=== PATIENT | female | born 1970 | race Caucasian/White ===

== ENCOUNTER 2017-06-12 09:08 | Day surgery (SDC) | payer SELFPAY ==
[2017-06-12] MEDS ORDERED: DIPH/PERTUSS(ACELL)/TETANUS VAC/PF 0.5 ML SYR (>=10YO) IM ONE (09:51)
[2017-06-12] MEDS ORDERED: CEFAZOLIN 2 GM/D5W RTU 2 GM/50 ML RTUPB IV ONE (09:51)
[2017-06-12] MEDS ORDERED: NORMAL SALINE 1000 ML 1,000 ML IV ONE (09:56)
--- NOTE | 2017-06-12 09:56 | ER Document Report ---
ED General - General Chief Complaint: Laceration Stated Complaint: WRIST LACERATION Time Seen by Provider: 06/12/17 09:50 Mode of Arrival: Ambulatory Information source: Patient Notes: 47-year-old female history of hypertension presents with complaints of laceration of the wrist. Patient notes that she was in a dumpster retrieving a screwdriver. Patient notes she cut her wrist on a fish aquarium Patient went to urgent care and was sent immediately here tetanus is not up-to- date TRAVEL OUTSIDE OF THE [place] IN LAST 30 DAYS: No - HPI Onset: Just prior to arrival Onset/Duration: Sudden Quality of pain: Sharp Severity: Moderate Pain Level: 2 Associated symptoms: Other Exacerbated by: Denies Relieved by: Denies Similar symptoms previously: No Recently seen / treated by doctor: Yes - Related Data Allergies/Adverse Reactions: No Known Allergies Allergy (Verified 06/12/17 09:09) Past Medical History - Social History Smoking Status: Never Smoker Cigarette use (# per day): No Chew tobacco use (# tins/day): No Smoking Education Provided: No Family History: Reviewed & Not Pertinent - Past Medical History Cardiac Medical History: Reports: Hx Hypertension - Immunizations Hx Diphtheria, Pertussis, Tetanus Vaccination: No Review of Systems - Review of Systems Notes: REVIEW OF SYSTEMS: CONSTITUTIONAL : Denies fever, chills, or sweats. Denies recent illness. EENT: Denies eye, ear, throat, or mouth pain or symptoms. Denies nasal or sinus congestion or discharge. Denies throat, tongue, or mouth swelling or difficulty swallowing. CARDIOVASCULAR: Denies chest pain. Denies palpitations or racing or irregular heart beat. Denies ankle edema. RESPIRATORY: Denies cough, cold, or chest congestion. Denies shortness of breath, difficulty breathing, or wheezing. GASTROINTESTINAL: Denies abdominal pain or distention. Denies nausea, vomiting , or diarrhea. Denies blood in vomitus, stools, or per rectum. Denies black, tarry stools. Denies constipation. GENITOURINARY: Denies difficulty urinating, painful urination, burning, frequency, blood in urine, or discharge. FEMALE GENITOURINARY: Denies vaginal bleeding, heavy or abnormal periods, irregular periods. Denies vaginal discharge or odor. MUSCULOSKELETAL: Denies back or neck pain or stiffness. Denies joint pain or swelling. SKIN: Right wrist laceration HEMATOLOGIC : Denies easy bruising or bleeding. LYMPHATIC: Denies swollen, enlarged glands. NEUROLOGICAL: Denies confusion or altered mental status. Denies passing out or loss of consciousness. Denies dizziness or lightheadedness. Denies headache. Denies weakness or paralysis or loss of use of either side. Denies problems with gait or speech. Denies sensory loss, numbness, or tingling. Denies seizures. PSYCHIATRIC: Denies anxiety or stress. Denies depression, suicidal ideation, or homicidal ideation. ALL OTHER SYSTEMS REVIEWED AND NEGATIVE. PHYSICAL EXAMINATION: GENERAL: Well-appearing, well-nourished and in mild acute distress. HEAD: Atraumatic, normocephalic. EYES: Pupils equal round and reactive to light, extraocular movements intact, conjunctiva are normal. ENT: Nares patent, oropharynx clear without exudates. Moist mucous membranes. NECK: Normal range of motion, supple without lymphadenopathy LUNGS: Breath sounds clear to auscultation bilaterally and equal. No wheezes rales or rhonchi. HEART: Regular rate and rhythm without murmurs ABDOMEN: Soft, nontender, nondistended abdomen. No guarding, no rebound. No masses appreciated. Female : deferred Musculoskeletal: Normal range of motion, no pitting or edema. No cyanosis. NEUROLOGICAL: Cranial nerves grossly intact. Normal speech, normal gait. Normal sensory, motor exams PSYCH: Normal mood, normal affect. SKIN: Laceration of the wrist right palmar aspect with obvious radial arterial injury pulsating blood noted, there is no involvement of tendons or nerves, patient has full range of motion of her hand good sensation patient still has good cap refill in her digits Dictation was performed using [employer] voice recognition software Physical Exam - Vital signs Vitals: Temp Pulse Resp BP Pulse Ox 97.9 F 97 16 175/122 H 98 06/12/17 09:33 06/12/17 09:33 06/12/17 09:33 06/12/17 09:33 06/12/17 09:33 Course - Re-evaluation Re-evalutation: 06/12/17 10:06 There is an obvious laceration of radial artery, Dr. Ireland was immediately consulted who immediately arrived to the ED, prior to even getting lab work or IV access he evaluated the injury noted that it is arterial in nature and will take to the operating room for repair - Vital Signs Vital signs: Temp Pulse Resp BP Pulse Ox 97.9 F 97 16 175/122 H 98 06/12/17 09:33 06/12/17 09:33 06/12/17 09:33 06/12/17 09:33 06/12/17 09:33 Critical Care Note - Critical Care Note Total time excluding time spent on procedures (mins): 15 Comments: 15 minutes of critical care time spent in direct contact evaluating and reevaluating the patient, treating symptoms, reviewing labs and studies and speaking with family and consultants excluding any procedures Discharge - Discharge Clinical Impression: Radial artery injury Qualifiers: Encounter type: initial encounter Laterality: right Qualified Code(s): S55.101A - Unspecified injury of radial artery at forearm level, right arm, initial encounter Condition: Fair Disposition: SAME DAY SURGERY Admitting Provider: Surgicalist
[2017-06-12] MEDS ORDERED: LIDOCAINE 1%/EPINEPHRINE INJ 20 ML VIAL ONE (10:04)
[2017-06-12] MEDS ORDERED: FENTANYL CITRATE INJ/PF 100 MCG/2 ML AMPUL ONE ×3 (10:11→11:56)
[2017-06-12] MEDS ORDERED: MIDAZOLAM 2 MG/2 ML INJ ONE ×2 (10:12→11:56)
[2017-06-12] MEDS ORDERED: PROPOFOL INJ 200 MG/20 ML VIAL IV ONE ×2 (10:12→11:56)
[2017-06-12 10:30] LABS: ABSOLUTE EOSINOPHILS # (AUTO) 0.1 10^3/uL (0.0-0.6); ABSOLUTE LYMPHOCYTES (AUTO) 1.1 10^3/uL (0.5-4.7); ABSOLUTE MONOCYTES (AUTO) 0.6 10^3/uL (0.1-1.4); ABSOLUTE NEUT (AUTO) 6.5 10^3/uL (1.7-8.2); BASOPHILS % (AUTO) 0.5 % (0-2); EOSINOPHILS % (AUTO) 0.7 % (0-6); HEMATOCRIT 41.8 % (36.0-47.0); HEMOGLOBIN 14.2 g/dL (12.0-15.5); LYMPHOCYTES % (AUTO) 13.2 % (13-45); MEAN CORPUSCULAR HEMOGLOBIN 29.6 pg (27.0-33.4); MEAN CORPUSCULAR HGB CONC 34.1 g/dL (32.0-36.0); MEAN CORPUSCULAR VOLUME 87 fl (80-97); MONOCYTES % (AUTO) 7.2 % (3-13); PLATELET COUNT 274 10^3/uL (150-450); RED BLOOD COUNT 4.81 10^6/uL (3.72-5.28); RED CELL DISTRIBUTION WIDTH 13.3 % (11.5-14.0); SEGMENTED NEUTROPHILS % (AUTO) 78.4 % (42-78); TOTAL CELLS COUNTED % (AUTO) 100 %; WHITE BLOOD COUNT 8.3 10^3/uL (4.0-10.5)
[2017-06-12] MEDS ORDERED: KETOROLAC TROMETHAMINE 10 MG TABLET PO PRN (11:47)
[2017-06-12] MEDS ORDERED: ONDANSETRON HCL INJ/PF 4 MG/2 ML SDV IV PRN ×2 (11:47→11:59)
[2017-06-12] MEDS ORDERED: ACETAMINOPHEN 100 ML IV ONE (11:56)
--- NOTE | 2017-06-12 11:56 | Operative Report ---
Operative Report DATE OF SURGERY: 06/12/17 PREOPERATIVE DIAGNOSIS: Laceration right wrist with arterial bleeding POSTOPERATIVE DIAGNOSIS: As above with partial laceration to right radial artery OPERATION: 1. Exploration of right wrist wound. 2. Repair of right radial artery, likely branch thereof SURGEON: BORIS JOYNER ANESTHESIA: GA TISSUE REMOVED OR ALTERED: Nonviable skin COMPLICATIONS: None ESTIMATED BLOOD LOSS: 5 cc in OR INTRAOPERATIVE FINDINGS: See below PROCEDURE: The patient was seen in the emergency department where it was determined that the patient needed to be taken from the emergency department to the operating room control of right radial artery injury. The patient was taken directly to room for after operating room staff and anesthesia were mobilized. Patient anesthetized with general anesthesia. Right arm was abducted, prepped and draped in sterile fashion while holding pressure on the right radial artery. Instrumentation was set up vascular surgery. The right wrist was exposed after timeout conducted The findings are significant for an irregular, longitudinally oriented laceration proximal over and slightly distal to the flexor retinacular crease. The bleeding was coming from a small 2 mm diameter artery running diagonal just under the deep subcutaneous tissue. The laceration did not divide the entire flexor retinaculum; the palmaris longus, and median nerve sheaths were not violated. Therefore this was a very superficial injury. I placed to small bulldog clamps proximally and distally to the small artery. We brought Doppler onto the field and assess the viability of the hand. Strong three-phase signals in the ulnar artery, and the superficial and deep palmar arches. Furthermore there was a strong arterial signal just proximal to the laceration, and the clamped branch vessel. Proceeded to repair the small laceration in the branch of the radial artery which was a partial transverse injury with a single 6-0 interrupted Prolene suture. Clamps were released and flow was restored through this small branch artery as evidenced by the visible pulsations of the vessel. Furthermore we reapplied Doppler and there was strong signal overlying the course of the radial artery at the level of the flexor retinaculum, with persisting, strong signal into the thenar eminence. Summary I believe the artery injury was a branch of the radial artery, not the dominant right nonetheless I felt flow remained wrong to the right hand, and there was no evidence of vascular compromise. Wound was debrided, closed with multiple interrupted 3-0 Vicryl sutures benzoin Steri-Strips Xeroform 4 x 4's and a bulky dressing with a splint leaving the wrist in neutral position. Patient tolerated the procedure well, extubated, taken recovery in stable condition.
[2017-06-12] MEDS ORDERED: MORPHINE SULFATE 10 MG/ML INJ IV PRN (11:59)
[2017-06-12] MEDS ORDERED: FENTANYL CITRATE INJ/PF 100 MCG/2 ML AMPUL IV PRN ×3 (11:59)
[2017-06-12] MEDS ORDERED: PROMETHAZINE HCL INJ 25 MG/1 ML VIAL IV PRN ×2 (11:59)
[2017-06-12] MEDS ORDERED: MEPERIDINE HCL/PF INJ 25 MG/1 ML DISP.SYRIN IV PRN (11:59)
[2017-06-12] MEDS ORDERED: DIPHENHYDRAMINE HCL 50 MG/ML VIAL IV PRN (11:59)
--- NOTE | 2017-06-12 12:08 | HISTORY AND PHYSICAL E ---
History and Physical NAME: BERE ROJAS : 1970 AGE: 47Y ADMITTED: 06/12/2017 ROOM: ED08 REASON FOR HOSPITALIZATION: Laceration right wrist with uncontrolled arterial bleeding. HISTORY OF PRESENTING ILLNESS: The patient is a 47-year-old white female who presents to the emergency department via ground rescue after crawling into a dumpster to retrieve a screwdriver by report. Patient sustained a laceration to the volar aspect of her right wrist with significant arterial bleeding. She was brought to the emergency department with direct pressure applied to the right wrist. The patient was evaluated by Dr. Whitmore who immediately called General Surgery. Patient was evaluated in the emergency department immediately and found to have mechanical bleeding from the right wrist refractory to direct pressure control. We felt that the best course of action would be to take to the patient to the operating room for right wrist exploration and control of bleeding. PAST MEDICAL HISTORY: Hypertension. PAST SURGICAL HISTORY: None. ALLERGIES: None. MEDICATIONS: None. LOCAL MEDICAL DOCTOR: None. FAMILY HISTORY: Noncontributory. REVIEW OF SYSTEMS: As per HPI; no other review of systems performed due to the urgency of the clinical situation. PHYSICAL EXAMINATION: The patient was seen in the emergency department by Dr. Ireland. She was in mild distress. VITAL SIGNS: Temperature 97.9, blood pressure 175/122, heart rate 98, respirations 18. GENERAL: Patient is an anxious white female. She is awake, alert, oriented x4. HEAD: Eyes without icterus. NECK: No adenopathy. LUNGS: Clear to auscultation bilaterally. HEART: Without murmur or gallop. EXTREMITIES: Examined. The right wrist has a laceration longitudinally oriented over the medial aspect of the flexor crease with direct pressure being held to a minimally gaping wound. Upon release of the dressing, there is arterial pulsatile bleeding. NEUROLOGIC: Examination of the right hand and wrist limited, but radial, medial, and ulnar nerve distribution appeared intact. Left upper extremity and lower extremities are grossly unremarkable. There is a palpable radial pulse on the left side and dorsal pedis pulses bilaterally. LABORATORY PROFILE: Hemoglobin of 14.2 IMPRESSION: Traumatic laceration right wrist with arterial bleeding requiring surgical exploration. DISPOSITION: Patient will be taken directly to the operating room for right wrist exploration, control of bleeding. The rationale for this was explained to the patient and her friend. They expressed understanding and agreed to proceed. DICTATING PHYSICIAN: BORIS IRELAND M.D. [id number] PHY#: [id number] ID: [id number] JOB#: [id number] ACCT: [id number] cc:SIRI FRIEDMAN MD, M.D, TIMOTHY M.D. > [facility]
[2017-06-12 13:06] VITALS: BP 146/87
[2017-06-12] MEDS ORDERED: VECURONIUM BROMIDE INJ 10 MG VIAL IV ONE (14:05)
[2017-06-12] MEDS ORDERED: DEXAMETHASONE SOD PHOSPHATE INJ 4 MG/1 ML VIAL ONE (14:05)
[2017-06-12] MEDS ORDERED: SUCCINYLCHOLINE CHLORIDE INJ 200 MG/10 ML VIAL ONE (14:05)
[2017-06-12] MEDS ORDERED: LIDOCAINE 2% INJ-PF (20 MG/ML) 2 ML AMPUL ONE (14:05)
[2017-06-12] MEDS ORDERED: ONDANSETRON HCL INJ/PF 4 MG/2 ML SDV ONE (14:05)
[2017-06-12] MEDS ORDERED: METOCLOPRAMIDE HCL INJ/PF 10 MG/2 ML SDV ONE (14:05)
[2017-06-12] MEDS ORDERED: DOCUSATE SODIUM 100 MG CAPSULE PO SCH (18:00)
--- NOTE | 2017-06-16 07:48 | DISCHARGE SUMMARY E ---
Discharge Summary NAME: BERE ROJAS : 1970 AGE: 47Y ADMITTED: 06/12/2017 DISCHARGED: 06/12/2017 SUMMARY OF HOSPITALIZATION: The patient is a 47-year-old white female who sustained a traumatic laceration to her right radial artery. She was brought in through the emergency department and admitted to the surgicalist service for acute repair. Please see her admission history and physical document. The patient was taken immediately to the operating room by Dr. Ireland where she underwent operative repair of her right radial artery. She tolerated the procedure well. Her postoperative recovery was uneventful. She was started on a diet and had adequate pain control. She was discharged home from the hospital later that day. FINAL DIAGNOSIS: Traumatic laceration, right radial artery status post operative repair by Dr. Ireland. DISPOSITION: The patient will be discharged home in the care of her family. Follow up with Dr. Ireland at [facility] in approximately 1 week; discontinue bulky dressing in 48 hours; she will take Tylenol and Motrin p.r.n. pain. DICTATING PHYSICIAN: BORIS IRELAND M.D. [id number] PHY#: [id number] ID: [id number] JOB#: [id number] ACCT: [id number] cc:Lilian HAND MD, M.D. >
== END 2017-06-12 13:31 | disposition home or self-care (01) ==
LOC: OROUT 09:08 → UNDOADMIN 10:11 → EH 10:11 → 5 12:24 → EH 12:24 → UNDODISIN 13:31 → OROUT 13:31
PROVIDERS: ATTEND Surgery
PROC: 03QB0ZZ Repair Right Radial Artery, Open Approach (ICD-10-PCS; principal; 2017-06-12 10:15)
DX: S65.111A Laceration of radial artery at wrist and hand level of right arm, initial encounter (principal); S51.811A Laceration without foreign body of right forearm, initial encounter; W27.8XXA Contact with other nonpowered hand tool, initial encounter; Z23 Encounter for immunization; I10 Essential (primary) hypertension; Z79.899 Other long term (current) drug therapy
CPT/HCPCS: 99284; 36415; 85025; 90715; 35206; 90471; J2250; J1100; J3010; J3490 ×3; J2765; J0330; J2405; J2704; J1644; J0690; J0131; 1840

== ENCOUNTER 2019-12-26 17:36 | Inpatient (IN) | payer SELFPAY ==
--- NOTE | 2019-12-26 18:11 | ER Document Report ---
ED Medical Screen (RME) - General Chief Complaint: Facial Swelling Stated Complaint: FACIAL SWELLING Time Seen by Provider: 12/26/19 18:03 Mode of Arrival: Ambulatory Information source: Patient Notes: 49-year-old female presents to ED for complaint of neck swelling since last Thursday. She states it was just mildly swollen until yesterday. She states yesterday became much worse. He denies states is not severely painful but it is very tight. She is not able to open her mouth for me to examine her throat. Her neck is rock hard on the right side. I have requested and received a room i mmediately. She does have an elevated pulse elevated temperature and elevated blood pressure. Patient is able to speak with full sentences at this time she states she is not short of breath at this time but my concern is for her airway due to the size of the swelling to her neck. I have greeted and performed a rapid initial assessment of this patient. A comprehensive ED assessment and evaluation of the patient, analysis of test results and completion of medical decision making process will be conducted by an additional ED providers. TRAVEL OUTSIDE OF THE [place] IN LAST 30 DAYS: No - Related Data Allergies/Adverse Reactions: No Known Allergies Allergy (Verified 06/12/17 09:09) Past Medical History - Past Medical History Cardiac Medical History: Reports: Hx Hypertension Renal/ Medical History: Reports: Hx Peritoneal Dialysis - Immunizations Hx Diphtheria, Pertussis, Tetanus Vaccination: No Physical Exam - Vital signs Vitals: Temp Pulse Resp BP Pulse Ox 101.4 F H 122 H 20 163/102 H 98 12/26/19 17:40 12/26/19 17:40 12/26/19 17:40 12/26/19 17:40 12/26/19 17:40 Course - Vital Signs Vital signs: Temp Pulse Resp BP Pulse Ox 101.4 F H 122 H 20 163/102 H 98 12/26/19 17:40 12/26/19 17:40 12/26/19 17:40 12/26/19 17:40 12/26/19 17:40
[2019-12-26] MEDS ORDERED: DILTIAZEM HCL INJ 25 MG/5 ML VIAL IV ONE (18:17)
[2019-12-26] MEDS ORDERED: DIPHENHYDRAMINE HCL 50 MG/ML VIAL IV ONE (18:17)
[2019-12-26] MEDS ORDERED: FAMOTIDINE INJ/PF 20 MG/2 ML SDV IV ONE (18:18)
[2019-12-26] MEDS ORDERED: CEFTRIAXONE INJ 1000 MG VIAL IV ONE (18:18)
[2019-12-26] MEDS ORDERED: LEVOFLOXACIN 750 MG/D5W RTU 750 MG/150 ML RTUPB IV ONE (18:19)
--- NOTE | 2019-12-26 18:25 | ER Document Report ---
ED Medical Screen (RME) - General Chief Complaint: Facial Swelling Stated Complaint: FACIAL SWELLING Time Seen by Provider: 12/26/19 18:03 Mode of Arrival: Ambulatory Information source: Patient Notes: 12/26/19 18:56 - ED Nursing Note by DEBORAH PORTER Num: [id number] : 1970 Patient Age: 49 Pt c/c "My neck has been swollen since Thursday and now I cant open my mouth" Pt reports right lateral and medial neck edema that started Thursday and has progressed into her mandible region. The skin is firm to touch, warm, and erythemic. Pt denies any shortness of breath and has clear lungs to auscultation bibasilar. Pt reports unable to open mouth all the way secondary to swelling. No posterior pharynx edema noted. Pt denies any cracked teeth or dental problems. She denies any familial history of abnormal swelling of the neck or throat. Pt denies any current allergies. Pt denies any recent changes to current home medications. Pt able to speak full sentences. Pt placed on desk monitor with call mortensen within reach. Pt has right 18 G AC IV established on arrival to room. ED Medical Screen (Cesar rae) - General Chief Complaint: Facial Swelling Stated Complaint: FACIAL SWELLING Time Seen by Provider: 12/26/19 18:03 Mode of Arrival: Ambulatory Information source: Patient Notes: 49-year-old female presents to ED for complaint of neck swelling since last Thursday. She states it was just mildly swollen until yesterday. She states yesterday became much worse. He denies states is not severely painful but it is very tight. She is not able to open her mouth for me to examine her throat. Her neck is rock hard on the right side. I have requested and received a room immediately. She does have an elevated pulse elevated temperature and elevated blood pressure. Patient is able to speak with full sentences at this time she states she is not short of breath at this time but my concern is for her airway due to the size of the swelling to her neck. MY NOTES 49-year-old female arrives with chief complaint of swelling to her right facial and right submental and right lateral neck and anterior neck for 6 days; patient reports she has not taken any new medicines. She does take patient denies any trauma or abuse. She denies any dental abscess. Honeybee propolis; it is difficult for her to swallow food. 2 years ago patient saw a jose perdomoan and was placed on thyroid medicine blood pressure medicine and cholesterol medicine but stopped after 2 years because she did not have any physician or resources. Patient reports it started last Thursday as a golf ball area just near the angle of her jaw and neck. Patient describes a lymphoid type area. But it quickly progressed into a hard firm skin area of her neck and face. Patient has been applying cool compresses to the skin area but it progressed to firm red skin regardless. TRAVEL OUTSIDE OF THE [place] IN LAST 30 DAYS: No - HPI Onset: Last week Onset/Duration: Sudden, Persistent, Worse Quality of pain: Achy Severity: Moderate Pain Level: 3 Associated Symptoms: Headache, Sore throat Exacerbated by: Food Relieved by: Denies Similar symptoms previously: No Recently seen / treated by doctor: No - Related Data Smoking: Non-smoker Frequency of alcohol use: None Drug Abuse: None Allergies/Adverse Reactions: No Known Allergies Allergy (Verified 06/12/17 09:09) Past Medical History - General Information source: Patient - Social History Cigarette use (# per day): No Chew tobacco use (# tins/day): No Frequency of alcohol use: None Drug Abuse: None Lives with: Family Family history: Reviewed & Not Pertinent - Past Medical History Cardiac Medical History: Reports: Hx Hypertension Renal/ Medical History: Reports: Hx Peritoneal Dialysis - Immunizations Hx Diphtheria, Pertussis, Tetanus Vaccination: No Review of Systems - Review of Systems Constitutional: See HPI, Fever, Weakness, Recent illness EENT: See HPI Cardiovascular: No symptoms reported Respiratory: No symptoms reported Gastrointestinal: No symptoms reported Genitourinary: No symptoms reported Female Genitourinary: No symptoms reported Musculoskeletal: No symptoms reported Skin: No symptoms reported Hematologic/Lymphatic: No symptoms reported Neurological/Psychological: No symptoms reported Physical Exam - Vital signs Vitals: Temp Pulse Resp BP Pulse Ox 101.4 F H 122 H 20 163/102 H 98 12/26/19 17:40 12/26/19 17:40 12/26/19 17:40 12/26/19 17:40 12/26/19 17:40 Interpretation: Hypertensive, Tachycardic, Febrile - General General appearance: Alert - HEENT Head: Normocephalic, Atraumatic Eyes: Normal Pupils: PERRL Sinus: Normal Nasal: Normal Mouth/Lips: Angioedema, Other - Able to evaluate posterior pharynx with airway patent. Mucous membranes: Moist Pharynx: Normal Neck: Lymphadenopathy, Neck mass, Other - right lateral parotid edema tender to palp - Respiratory Respiratory status: No respiratory distress, Tachypnea Chest status: Nontender Breath sounds: Normal Chest palpation: Normal - Cardiovascular Rhythm: Tachycardia Heart sounds: Normal auscultation Murmur: No - Abdominal Inspection: Normal Distension: No distension Bowel sounds: Normal Tenderness: Nontender Organomegaly: No organomegaly - Rectal Hemorrhoids: Other - deferred - Genitourinary Bimanuel exam: Other - deferred - Back Back: Normal - Extremities General upper extremity: Normal inspection General lower extremity: Normal inspection - Neurological Neuro grossly intact: Yes Cognition: Normal Orientation: AAOx4 Darin Coma Scale Eye Opening: Spontaneous Darin Coma Scale Verbal: Oriented Darin Coma Scale Motor: Obeys Commands Darin Coma Scale Total: 15 Speech: Normal Motor strength normal: LUE, RUE, LLE, RLE Sensory: Normal - Psychological Associated symptoms: Normal affect - Skin Skin Temperature: Warm Skin Moisture: Dry Skin irregularity: Erythema, other - Cellulitis of right lateral face and neck Course - Vital Signs Vital signs: Temp Pulse Resp BP Pulse Ox 101.1 F H 122 H 34 H 157/93 H 94 12/26/19 21:15 12/26/19 17:40 12/26/19 21:01 12/26/19 21:01 12/26/19 21:01 - Laboratory Result Diagrams: 12/26/19 18:11 12/26/19 18:11 Laboratory results interpreted by me: 12/26/19 12/26/19 12/26/19 18:11 18:11 18:11 WBC 22.7 H Seg Neuts % (Manual) 82 H Lymphocytes % (Manual) 4 L Abs Neuts (Manual) 18.6 H Abs Monocytes (Manual) 2.7 H VBG pH Sodium 133.6 L Chloride 96 L Glucose 131 H Direct Bilirubin 0.5 H ALT 54 H Alkaline Phosphatase 159 H TSH 5.54 H 12/26/19 19:51 WBC Seg Neuts % (Manual) Lymphocytes % (Manual) Abs Neuts (Manual) Abs Monocytes (Manual) VBG pH 7.44 H Sodium Chloride Glucose Direct Bilirubin ALT Alkaline Phosphatase TSH Critical Care Note - Critical Care Note Comments: I discussed this case with Dr. Philip Champagne at 2147 and he advises 1 g of meropenem; I discussed this case with Dr. Geronimo oncologist because of the suspicion for any oral lesion Doctor's Discharge - Discharge Clinical Impression: Cellulitis and abscess of face, Parotitis, acute Fever Qualifiers: Fever type: unspecified Qualified Code(s): R50.9 - Fever, unspecified Condition: Good Disposition: ADMITTED INPATIENT
[2019-12-26 18:39] LABS: HEMATOCRIT 39.1 % (36.0-47.0); HEMOGLOBIN 13.5 g/dL (12.0-15.5); MEAN CORPUSCULAR HEMOGLOBIN 29.5 pg (27.0-33.4); MEAN CORPUSCULAR HGB CONC 34.6 g/dL (32.0-36.0); MEAN CORPUSCULAR VOLUME 85 fl (80-97); RED BLOOD COUNT 4.58 10^6/uL (3.72-5.28); RED CELL DISTRIBUTION WIDTH 13.5 % (11.5-14.0); WHITE BLOOD COUNT 22.7 10^3/uL (4.0-10.5)
[2019-12-26 18:41] LABS: INTERNATIONAL RATION (INR) 1.15; PROTHROMBIN TIME 14.9 SEC (11.4-15.4)
[2019-12-26 18:57] LABS: ABSOLUTE LYMPHOCYTES# (MANUAL) 1.4 10^3/uL (0.5-4.7); ABSOLUTE MONOCYTES # (MANUAL) 2.7 10^3/uL (0.1-1.4); BASOPHILS % (MANUAL) 0 % (0-2); EOSINOPHILS % (MANUAL) 0 % (0-6); LYMPHOCYTES % (MANUAL) 4 % (13-45); MONOCYTES % (MANUAL) 12 % (3-13); RBC MORPHOLOGY COMMENT NORMO-CYTIC/CHROMIC; SEGMENTED NEUTROPHILS % (MAN) 82 % (42-78); TOTAL CELLS COUNTED 100
[2019-12-26 18:58] LABS: PLATELET CLUMPS PRESENT; PLATELET COMMENT ADEQUATE; PLATELET COUNT 333 10^3/uL (150-450)
[2019-12-26 19:04] LABS: ALBUMIN 3.8 g/dL (3.5-5.0); ALKALINE PHOSPHATASE 159 U/L (38-126); ANION GAP 12 (5-19); ASPARTATE AMINO TRANSFERASE 30 U/L (14-36); BILIRUBIN,DIRECT 0.5 mg/dL (0.0-0.4); BILIRUBIN,TOTAL 1.2 mg/dL (0.2-1.3); BLOOD UREA NITROGEN 12 mg/dL (7-20); CALCIUM 9.3 mg/dL (8.4-10.2); CARBON DIOXIDE 26 mmol/L (22-30); CHLORIDE 96 mmol/L (98-107); GLUCOSE 131 mg/dL (75-110); POTASSIUM 4.4 mmol/L (3.6-5.0); TOTAL PROTEIN 7.2 g/dL (6.3-8.2)
[2019-12-26 19:50] LABS: FREE T4 (FREE THYROXINE) 1.09 ng/dL (0.78-2.19)
[2019-12-26] MEDS ORDERED: ACETAMINOPHEN 650 MG SUPP.RECT PR ONE (19:58)
[2019-12-26 20:03] LABS: VENOUS BLOOD BASE EXCESS 2.7 mmol/L; VENOUS BLOOD PCO2 40.5 mmHg (35-63); VENOUS BLOOD PH 7.44 (7.30-7.42)
[2019-12-26 20:04] LABS: THYROID STIMULATING HORMONE 5.54 uIU/mL (0.47-4.68)
--- NOTE | 2019-12-26 21:20 | RADIOLOGY REPORT (SQ) ---
EXAM DESCRIPTION: CT CHEST WITH IV CONTRAST, CT NECK WITH IV CONTRAST COMPLETED DATE/TME: 12/26/2019 18:16 CLINICAL HISTORY: 49 years, Female, facial swelling/SOB/POSSIBLE MASS COMPARISON: None. TECHNIQUE: Contrast enhanced CT of the chest was acquired. Coronal and sagittal reformations were created. Images stored on PACS. All CT scanners at this facility use dose modulation, iterative reconstruction, and/or weight based dosing when appropriate to reduce radiation dose to as low as reasonably achievable (ALARA). [facility]: Dose Right [facility]: CareDose [facility]: Dose Right [facility]: Teradose 4D [facility]: Sightly LIMITATIONS: None. FINDINGS: Contrast-enhanced CT chest: Central airways are patent. Lungs are clear. Mediastinal windows show no significant hilar or mediastinal lymph node enlargement. Heart shows no suspicious abnormality. The thoracic aorta opacifies with contrast normally. Limited evaluation of the upper abdomen reveals no suspicious finding. Bone windows through the chest reveal no destructive osseous lesions. Contrast enhanced CT neck: Thyroid gland enhances symmetrically. Hypopharynx, oropharynx, and nasopharynx show no suspicious abnormality. Globes and orbits show no suspicious abnormality. Limited assessment of the brain parenchyma reveals no suspicious finding. Right parotid gland appears asymmetrically enlarged compared to the contralateral side. In addition, there is superimposed soft tissue swelling about the rightward aspect of the face. Likewise, there is asymmetric enlargement of the right masseter muscle, right sternocleidomastoid muscle, and right medial/lateral pterygoid musculature. There is also asymmetric thickening involving the right platysma muscle. Inflammatory stranding extends inferiorly into the base of the neck. Several associated mildly enlarged right level IIa and Ib lymph nodes are evident, the largest of which is located about the right level IIa region measuring 1.7 x 1.1 cm in size on image 23 of series 3. Superimposed infiltrative soft tissue density is evident just anterior and medial to the right sternocleidomastoid mastoid muscle, best visualized on image 24 series 3. This appears to be located within the right inbound sales representative space.. Vascular structures opacify with contrast normally. No additional suspicious deep cervical lymphadenopathy is appreciated. There are no drainable fluid collections. Bone windows through the neck reveal no destructive osseous lesions. IMPRESSION: Contrast enhanced CT chest: No acute abnormality within the chest. Contrast enhanced CT neck: Inflammatory stranding located about the rightward aspect of the face, particularly involving the soft tissues just lateral and anterior to the right parotid parotid gland extending inferiorly along the rightward/anterior aspect of the mandible and into the base of the neck. Superimposed asymmetric enlargement of the right parotid gland, masseter, sternocleidomastoid muscle, platysma, and medial/lateral pterygoid muscles, presumably indicating associated proctitis/myositis. Overall, these findings are presumably infectious in etiology. However, continued close interval follow-up is recommended to document resolution and exclude a more sinister process such as malignancy. Superimposed infiltrative soft tissue density located about the soft tissues just anterior and medial to the right sternocleidomastoid muscle (within the inbound sales representative space) presumably corresponds to phlegmon. Again, this should be reassessed on follow-up imaging to document resolution. Superimposed deep cervical lymphadenopathy is likely reactive. TECHNICAL DOCUMENTATION: Quality ID # [id number]: Final reports with documentation of one or more dose reduction techniques (e.g., Automated exposure control, adjustment of the mA and/or kV according to patient size, use of iterative reconstruction technique) copyright 2011 [email or web address]- All Rights Reserved
[2019-12-26] MEDS ORDERED: MEROPENEM 1 GM VIAL IV ONE (21:40)
[2019-12-26] MEDS ORDERED: MAGNESIUM HYDROXIDE SUSP 30 ML UDCUP PO PRN (23:44)
[2019-12-26] MEDS ORDERED: MAG HYDROX/AL HYDROX/SIMETH SUSP 30 ML UDCUP PO PRN (23:44)
[2019-12-26] MEDS ORDERED: PROMETHAZINE HCL INJ 25 MG/1 ML VIAL IV PRN (23:44)
[2019-12-26] MEDS ORDERED: LORAZEPAM INJ 2 MG/1 ML VIAL IV PRN (23:48)
[2019-12-26] MEDS ORDERED: MELATONIN 5 MG TABLET PO PRN (23:48)
[2019-12-26] MEDS ORDERED: GUAIFENESIN SYRP 200 MG/10 ML UDC PO PRN (23:48)
[2019-12-26] MEDS ORDERED: HYDRALAZINE HCL INJ/PF 20 MG/1 ML SDV IV PRN (23:48)
[2019-12-26] MEDS ORDERED: MORPHINE SULFATE 10 MG/ML INJ IV PRN (23:48)
[2019-12-26] MEDS ORDERED: ACETAMINOPHEN 325 MG TABLET PO PRN (23:48)
[2019-12-27] MEDS ORDERED: MORPHINE SULFATE 10 MG/ML INJ IV PRN ×3 (00:21)
[2019-12-27] MEDS: DEXTROSE 5%-LACTATED RINGERS 1,000 ML IV PRN ×3 (00:55→16:13)
[2019-12-27] MEDS: FAMOTIDINE INJ/PF 20 MG/2 ML SDV IV SCH ×3 (01:16→21:21)
[2019-12-27] MEDS ORDERED: ACETAMINOPHEN SOLN 325 MG/10.15 ML UDCUP PO PRN ×2 (01:30→16:41)
--- NOTE | 2019-12-27 02:54 | PDOC H&P ---
History of Present Illness Admission Date/PCP: 12/26/19 22:29 No local PCP Patient complains of: Right facial swelling History of Present Illness: BERE MILLER is a 49 year old female who presents the emergency room with a one-week history of right facial swelling. She admits the symptoms began 1 week ago with a small area of swelling at the angle of her jaw on the right side. The swelling very gradually worsened until the night of 12/25/2019 when the swelling began to increase dramatically and continued to increase today causing her to come to the emergency room. The right facial swelling is only moderately painful but she is unable to open her mouth due to the tightness of the swelling. She denies other associated or accompanying signs and symptoms. In the emergency room she was found to have an acute right parotitis with extensive inflammation and with an elevated white blood count at 22,000 and hypertension. Antibiotic therapy was initiated with Rocephin and Levaquin by the emergency room physician. She developed a fever over the course of her emergency room visit. Patient was subsequently admitted to the hospital for further evaluation and treatment. Past Medical History Cardiac Medical History: Reports: Hypertension Denies: Coronary Artery Disease, Myocardial Infarction, Hyperlipidema Pulmonary Medical History: Denies: Asthma, Chronic Obstructive Pulmonary Disease (COPD) EENT Medical History: Denies: Cataracts, Ears - Hearing aids Neurological Medical History: Denies: Hemorrhagic CVA, Ischemic CVA, Seizures Endocrine Medical History: Denies: Diabetes Mellitus Type 1, Diabetes Mellitus Type 2 Renal/ Medical History: Denies: Chronic Kidney Disease, Nephrolithiasis Malignancy Medical History: Reports: None GI Medical History: Denies: Cirrhosis, Hepatitis, Peptic Ulcer Disease Musculoskeltal Medical History: Denies: Arthritis, Gout Skin Medical History: Denies: Eczema, Psoriasis Psychiatric Medical History: Denies: Alcohol Dependency, Substance Abuse, Tobacco Dependency Traumatic Medical History: Reports: None Hematology: Denies: Anemia, Bleeding Tendencies Infectious Medical History: Reports: None Past Surgical History Past Surgical History: Reports: Vascular Surgery - Right wrist surgery to stop arterial bleeding Social History Information Source: Patient Lives with: Alone Smoking Status: Never Smoker Electronic Cigarette use?: No Frequency of Alcohol Use: Occasional Hx Recreational Drug Use: No Drugs: None Hx Prescription Drug Abuse: No - Advance Directive Resuscitation Status: Full Code Surrogate healthcare decision maker:: Darleen Vaughan Family History Family History: Hypertension Parental Family History Reviewed: Yes Children Family History Reviewed: No Sibling(s) Family History Reviewed.: No Medication/Allergy Home Medications: No Home Medications 06/23/11 Oxycodone HCl/Acetaminophen [Percocet 5-325 mg Tablet] 1 - 2 tab PO Q4H PRN #14 tablet 04/30/14 Sulfamethoxazole/Trimethoprim [Sulfamethoxazole-Tmp Ds Tablet] 2 each PO BID #40 tablet 04/30/14 Allergies/Adverse Reactions: No Known Allergies Allergy (Verified 06/12/17 09:09) Review of Systems Constitutional: ABSENT: chills, fever(s) Eyes: ABSENT: visual disturbances, other - Eye pain Ears: ABSENT: hearing changes, other - Ear pain Nose, Mouth, and Throat: PRESENT: as per HPI, other - Right facial and neck swelling with minimal pain. ABSENT: headache(s), mouth pain, sore throat Cardiovascular: ABSENT: chest pain, palpitations Respiratory: ABSENT: cough, dyspnea Gastrointestinal: ABSENT: abdominal pain, constipation, diarrhea, nausea, vomiting Genitourinary: ABSENT: dysuria, hematuria Musculoskeletal: ABSENT: back pain, joint swelling, muscle weakness Integumentary: ABSENT: pruritus, rash Neurological: ABSENT: confusion, convulsions, focal weakness, memory loss, syncope Psychiatric: ABSENT: anxiety, depression Endocrine: ABSENT: cold intolerance, heat intolerance Hematologic/Lymphatic: ABSENT: easy bleeding, easy bruising Allergic/Immunologic: ABSENT: seasonal rhinorrhea Physical Exam Vital Signs: Temp Pulse Resp BP Pulse Ox 101.1 F H 122 H 31 H 133/79 H 94 12/26/19 21:15 12/26/19 17:40 12/26/19 22:01 12/26/19 22:01 12/26/19 22:01 Intake & Output 12/24/19 12/25/19 12/26/19 23:59 23:59 23:59 Intake Total 350 Balance 350 Weight 88 kg General appearance: PRESENT: no acute distress, cooperative, obese Head exam: PRESENT: atraumatic, normocephalic Eye exam: PRESENT: conjunctiva pink. ABSENT: conjunctival injection, scleral icterus Ear exam: PRESENT: normal external ear exam. ABSENT: bleeding, drainage Mouth exam: PRESENT: dry mucosa, other - Swelling with minimal tenderness of right lateral neck, unable to open mouth due to swelling Neck exam: ABSENT: thyromegaly, tracheal deviation Respiratory exam: PRESENT: clear to auscultation gege, symmetrical, unlabored Cardiovascular exam: PRESENT: RRR. ABSENT: clicks, gallop, rubs Pulses: PRESENT: normal radial pulses, normal dorsalis pedis pul Vascular exam: PRESENT: normal capillary refill. ABSENT: pallor GI/Abdominal exam: PRESENT: normal bowel sounds, soft. ABSENT: tenderness Rectal exam: PRESENT: deferred Extremities exam: ABSENT: joint swelling, pedal edema Musculoskeletal exam: ABSENT: deformity, dislocation Neurological exam: PRESENT: alert, oriented to person, oriented to place, oriented to time, oriented to situation, CN II-XII grossly intact. ABSENT: motor sensory deficit Psychiatric exam: PRESENT: appropriate affect, normal mood Skin exam: PRESENT: dry, erythema - Erythema edema and induration of the right jaw and lateral neck areas with mild to moderate tenderness on palpation, warm. ABSENT: jaundice, rash, urticaria Results Laboratory Results: 12/26/19 18:11 12/26/19 18:11 12/26/19 12/26/19 12/26/19 18:11 18:11 18:11 WBC 22.7 H RBC 4.58 Hgb 13.5 Hct 39.1 MCV 85 MCH 29.5 MCHC 34.6 RDW 13.5 Plt Count 333 Seg Neutrophils % Not Reportable VBG pH VBG pCO2 VBG HCO3 VBG Base Excess Sodium 133.6 L Potassium 4.4 Chloride 96 L Carbon Dioxide 26 Anion Gap 12 BUN 12 Creatinine 0.83 Est GFR ( Amer) > 60 Glucose 131 H Lactic Acid 0.9 Calcium 9.3 Total Bilirubin 1.2 AST 30 Alkaline Phosphatase 159 H Total Protein 7.2 Albumin 3.8 TSH Free T4 12/26/19 12/26/19 12/26/19 18:11 19:51 21:15 WBC RBC Hgb Hct MCV MCH MCHC RDW Plt Count Seg Neutrophils % VBG pH 7.44 H VBG pCO2 40.5 VBG HCO3 27.0 VBG Base Excess 2.7 Sodium Potassium Chloride Carbon Dioxide Anion Gap BUN Creatinine Est GFR ( Amer) Glucose Lactic Acid 0.7 Calcium Total Bilirubin AST Alkaline Phosphatase Total Protein Albumin TSH 5.54 H Free T4 1.09 Impressions: Chest CT 12/26/19 18:16 IMPRESSION: Contrast enhanced CT chest: No acute abnormality within the chest. Contrast enhanced CT neck: Inflammatory stranding located about the rightward aspect of the face, particularly involving the soft tissues just lateral and anterior to the right parotid parotid gland extending inferiorly along the rightward/anterior aspect of the mandible and into the base of the neck. Superimposed asymmetric enlargement of the right parotid gland, masseter, sternocleidomastoid muscle, platysma, and medial/lateral pterygoid muscles, presumably indicating associated proctitis/myositis. Overall, these findings are presumably infectious in etiology. However, continued close interval follow-up is recommended to document resolution and exclude a more sinister process such as malignancy. Superimposed infiltrative soft tissue density located about the soft tissues just anterior and medial to the right sternocleidomastoid muscle (within the show host or hostess space) presumably corresponds to phlegmon. Again, this should be reassessed on follow-up imaging to document resolution. Superimposed deep cervical lymphadenopathy is likely reactive. TECHNICAL DOCUMENTATION: Quality ID # [id number]: Final reports with documentation of one or more dose reduction techniques (e.g., Automated exposure control, adjustment of the mA and/or kV according to patient size, use of iterative reconstruction technique) copyright 2011 [employer]- All Rights Reserved Soft Tissue Neck CT 12/26/19 18:16 IMPRESSION: Contrast enhanced CT chest: No acute abnormality within the chest. Contrast enhanced CT neck: Inflammatory stranding located about the rightward aspect of the face, particularly involving the soft tissues just lateral and anterior to the right parotid parotid gland extending inferiorly along the rightward/anterior aspect of the mandible and into the base of the neck. Superimposed asymmetric enlargement of the right parotid gland, masseter, sternocleidomastoid muscle, platysma, and medial/lateral pterygoid muscles, presumably indicating associated proctitis/myositis. Overall, these findings are presumably infectious in etiology. However, continued close interval follow-up is recommended to document resolution and exclude a more sinister process such as malignancy. Superimposed infiltrative soft tissue density located about the soft tissues just anterior and medial to the right sternocleidomastoid muscle (within the show host or hostess space) presumably corresponds to phlegmon. Again, this should be reassessed on follow-up imaging to document resolution. Superimposed deep cervical lymphadenopathy is likely reactive. TECHNICAL DOCUMENTATION: Quality ID # [id number]: Final reports with documentation of one or more dose reduction techniques (e.g., Automated exposure control, adjustment of the mA and/or kV according to patient size, use of iterative reconstruction technique) copyright 2011 [employer]- All Rights Reserved Assessment and Plan - Diagnosis (1) Parotitis, acute Is this a current diagnosis for this admission?: Yes (2) Facial cellulitis Is this a current diagnosis for this admission?: Yes (3) Leukocytosis Qualifiers: Leukocytosis type: unspecified Qualified Code(s): D72.829 - Elevated white blood cell count, unspecified Is this a current diagnosis for this admission?: Yes (4) Hypertension Qualifiers: Hypertension type: essential hypertension Qualified Code(s): I10 - Essential (primary) hypertension Is this a current diagnosis for this admission?: Yes (5) Obesity Qualifiers: Obesity classification: adult class 1 (BMI 30 - 34.9) Serious obesity comorbidity presence: without serious comorbidity Body mass index: BMI 31.0- 31.9 Is this a current diagnosis for this admission?: Yes - Plan Summary Summary: Patient will be admitted to telemetry on the medical floor where she will receive routine supportive and symptomatic cares. She will be treated with IV antibiotics utilizing meropenem 1 g IV every 8 hours initially. She will also receive Zyvox 600 mg IV every 12 hours. She will be given IV fluids utilizing D5LR at 167 mL/h. She will receive morphine sulfate 2 to 4 mg IV every 2 hours as needed for pain. She will receive Ativan 1 mg IV every 4 hours as needed for anxiety or restlessness. She will receive intravenous hydralazine and/or metoprolol as needed to control her blood pressure initially until she can be started on appropriate oral therapy. She will be on a clear liquid diet initially. - Time Time Spent with patient: 15-24 minutes Medications reviewed and adjusted accordingly: No - No home meds Anticipated Discharge Disposition: Home, Self Care Anticipated Discharge Timeframe: within 72 hours - Inpatient Certification Based on my medical assessment, after consideration of the patient's nusrat rbidities, presenting symptoms, or acuity I expect that the services needed warrant INPATIENT care.: Yes I certify that my determination is in accordance with my understanding of Medicare's requirements for reasonable and necessary INPATIENT services [42 CFR 412.3e].: Yes Medical Necessity: Need For IV Fluids, Need For Continuous Telemetry Monitoring, Need for IV Antibiotics
[2019-12-27] MEDS ORDERED: MEROPENEM 1 GM VIAL ONE (05:04)
[2019-12-27 05:31] LABS: HEMATOCRIT 36.4 % (36.0-47.0); HEMOGLOBIN 12.8 g/dL (12.0-15.5); MEAN CORPUSCULAR HEMOGLOBIN 29.8 pg (27.0-33.4); MEAN CORPUSCULAR VOLUME 85 fl (80-97); PLATELET COUNT 290 10^3/uL (150-450); RED BLOOD COUNT 4.28 10^6/uL (3.72-5.28); RED CELL DISTRIBUTION WIDTH 13.4 % (11.5-14.0); WHITE BLOOD COUNT 21.3 10^3/uL (4.0-10.5)
[2019-12-27] MEDS: HEPARIN SOD (PORCINE) 5,000 UNIT/ML 1 ML VIAL SUBCUT SCH ×3 (05:51→21:21)
[2019-12-27] MEDS: MEROPENEM 1 GM in NORMAL SALINE 50 ML IV SCH ×3 (05:51→21:20)
[2019-12-27 05:53] LABS: ANION GAP 8 (5-19); BLOOD UREA NITROGEN 9 mg/dL (7-20); CALCIUM 8.8 mg/dL (8.4-10.2); CARBON DIOXIDE 26 mmol/L (22-30); CHLORIDE 103 mmol/L (98-107); GLUCOSE 141 mg/dL (75-110); POTASSIUM 4.2 mmol/L (3.6-5.0)
[2019-12-27] MEDS ORDERED: MEROPENEM 1 GM VIAL IV PRN (06:00)
--- NOTE | 2019-12-27 08:22 | PDOC CONSULTATION ---
Consultation Consult Date: 12/27/19 Provider Consulted: ROXANA BRADY Consult reason:: Hematology/Oncology consultation was requested for possible parotid mass History of Present Illness Admission Date/PCP: 12/26/19 22:29 History of Present Illness: BERE MILLER is a 49 year old female with no PCP and no significant past medical history. She presented to the ED yesterday with a 4 day history of sudden swelling and pain in her jaw and neck. She states that it came on very quickly. It is not painful, just very uncomfortable. She is not able to open her mouth very far due to this, but swallowing is not affected. No other complaints. She has never had anything like this before. Past Medical History Cardiac Medical History: Reports: Hypertension Denies: Coronary Artery Disease, Myocardial Infarction, Hyperlipidema Pulmonary Medical History: Denies: Asthma, Chronic Obstructive Pulmonary Disease (COPD) EENT Medical History: Denies: Cataracts, Ears - Hearing aids Neurological Medical History: Denies: Hemorrhagic CVA, Ischemic CVA, Seizures Endocrine Medical History: Denies: Diabetes Mellitus Type 1, Diabetes Mellitus Type 2 Renal/ Medical History: Denies: Chronic Kidney Disease, Nephrolithiasis Malignancy Medical History: Reports: None GI Medical History: Denies: Cirrhosis, Hepatitis, Peptic Ulcer Disease Musculoskeltal Medical History: Denies: Arthritis, Gout Skin Medical History: Denies: Eczema, Psoriasis Psychiatric Medical History: Denies: Alcohol Dependency, Depression, Substance Abuse, Tobacco Dependency Traumatic Medical History: Reports: None Hematology: Denies: Anemia, Bleeding Tendencies Infectious Medical History: Reports: None Past Surgical History Past Surgical History: Reports: Vascular Surgery - Right wrist surgery to stop arterial bleeding Social History Information Source: Patient Lives with: Alone Smoking Status: Current Every Day Smoker Cigarettes Packs Per Day: 0.5 Electronic Cigarette use?: No Number of Years Smokin Last Time Smoked: 12/26/19 Frequency of Alcohol Use: Occasional Hx Recreational Drug Use: No Drugs: None Hx Prescription Drug Abuse: No Past Social History Note: Not currently working. 4 children. - Advance Directive Resuscitation Status: Full Code Family History Family History: Hypertension Parental Family History Reviewed: Yes - Father from [place]. Mother of [place]. Children Family History Reviewed: Yes Sibling(s) Family History Reviewed.: Yes Medication/Allergy Home Medications: No Home Medications 06/23/11 Oxycodone HCl/Acetaminophen [Percocet 5-325 mg Tablet] 1 - 2 tab PO Q4H PRN #14 tablet 04/30/14 Sulfamethoxazole/Trimethoprim [Sulfamethoxazole-Tmp Ds Tablet] 2 each PO BID #40 tablet 04/30/14 Allergies/Adverse Reactions: No Known Allergies Allergy (Verified 06/12/17 09:09) Review of Systems Constitutional: PRESENT: fever(s). ABSENT: headache(s) Eyes: ABSENT: visual disturbances Ears: ABSENT: hearing changes Nose, Mouth, and Throat: PRESENT: as per HPI, mouth pain Cardiovascular: ABSENT: chest pain Respiratory: ABSENT: dyspnea Gastrointestinal: ABSENT: constipation, nausea Genitourinary: ABSENT: dysuria Musculoskeletal: PRESENT: as per HPI Integumentary: ABSENT: rash Neurological: ABSENT: abnormal gait, memory loss, weakness Psychiatric: PRESENT: anxiety Hematologic/Lymphatic: ABSENT: easy bleeding Physical Exam Vital Signs: Temp Pulse Resp BP Pulse Ox 99.2 F 92 18 142/80 H 96 12/27/19 02:31 12/27/19 07:00 12/27/19 00:52 12/27/19 00:52 12/27/19 00:52 Intake & Output 12/26/19 12/27/19 12/28/19 06:59 06:59 06:59 Intake Total 400 1000 Balance 400 1000 Weight 85.7 kg General appearance: PRESENT: no acute distress, well-developed, well-nourished Exam: 49 year old female. She is anxious and scared, but otherwise, is quite pleasant. Head exam: PRESENT: atraumatic Eye exam: PRESENT: EOMI Mouth exam: PRESENT: moist, other - Cannot open jaw fully. Throat exam: PRESENT: other - Unable to assess. Neck exam: PRESENT: other - Erythema and edema right jaw and neck.. ABSENT: lymphadenopathy Respiratory exam: PRESENT: clear to auscultation gege, unlabored Cardiovascular exam: PRESENT: RRR. ABSENT: systolic murmur GI/Abdominal exam: PRESENT: normal bowel sounds, soft. ABSENT: tenderness Extremities exam: ABSENT: pedal edema Musculoskeletal exam: PRESENT: normal inspection Neurological exam: PRESENT: alert, awake Psychiatric exam: PRESENT: appropriate affect Skin exam: PRESENT: normal color Results Laboratory Results: 12/27/19 05:09 12/27/19 05:09 12/26/19 12/26/1920 18:11 18:11 18:11 WBC 22.7 H RBC 4.58 Hgb 13.5 Hct 39.1 MCV 85 MCH 29.5 MCHC 34.6 RDW 13.5 Plt Count 333 Seg Neutrophils % Not Reportable VBG pH VBG pCO2 VBG HCO3 VBG Base Excess Sodium 133.6 L Potassium 4.4 Chloride 96 L Carbon Dioxide 26 Anion Gap 12 BUN 12 Creatinine 0.83 Est GFR ( Amer) > 60 Glucose 131 H Lactic Acid 0.9 Calcium 9.3 Magnesium Total Bilirubin 1.2 AST 30 Alkaline Phosphatase 159 H Total Protein 7.2 Albumin 3.8 TSH Free T4 12/26/19 12/26/19 12/26/19 18:11 19:51 21:15 WBC RBC Hgb Hct MCV MCH MCHC RDW Plt Count Seg Neutrophils % VBG pH 7.44 H VBG pCO2 40.5 VBG HCO3 27.0 VBG Base Excess 2.7 Sodium Potassium Chloride Carbon Dioxide Anion Gap BUN Creatinine Est GFR ( Amer) Glucose Lactic Acid 0.7 Calcium Magnesium Total Bilirubin AST Alkaline Phosphatase Total Protein Albumin TSH 5.54 H Free T4 1.09 12/27/19 12/27/19 12/27/19 01:15 05:09 05:09 WBC 21.3 H RBC 4.28 Hgb 12.8 Hct 36.4 MCV 85 MCH 29.8 MCHC 35.0 RDW 13.4 Plt Count 290 Seg Neutrophils % VBG pH VBG pCO2 VBG HCO3 VBG Base Excess Sodium 137.3 Potassium 4.2 Chloride 103 Carbon Dioxide 26 Anion Gap 8 BUN 9 Creatinine 0.74 Est GFR ( Amer) > 60 Glucose 141 H Lactic Acid 1.1 Calcium 8.8 Magnesium 2.3 Total Bilirubin AST Alkaline Phosphatase Total Protein Albumin TSH Free T4 Impressions: Chest CT 12/26/19 18:16 IMPRESSION: Contrast enhanced CT chest: No acute abnormality within the chest. Contrast enhanced CT neck: Inflammatory stranding located about the rightward aspect of the face, particularly involving the soft tissues just lateral and anterior to the right parotid parotid gland extending inferiorly along the rightward/anterior aspect of the mandible and into the base of the neck. Superimposed asymmetric enlargement of the right parotid gland, masseter, sternocleidomastoid muscle, platysma, and medial/lateral pterygoid muscles, presumably indicating associated proctitis/myositis. Overall, these findings are presumably infectious in etiology. However, continued close interval follow-up is recommended to document resolution and exclude a more sinister process such as malignancy. 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 Again, this should be reassessed on follow-up imaging to document resolution. Superimposed deep cervical lymphadenopathy is likely reactive. TECHNICAL DOCUMENTATION: Quality ID # [id number]: Final reports with documentation of one or more dose reduction techniques (e.g., Automated exposure control, adjustment of the mA and/or kV according to patient size, use of iterative reconstruction technique) copyright 2011 [employer]- All Rights Reserved Soft Tissue Neck CT 12/26/19 18:16 IMPRESSION: Contrast enhanced CT chest: No acute abnormality within the chest. Contrast enhanced CT neck: Inflammatory stranding located about the rightward aspect of the face, particularly involving the soft tissues just lateral and anterior to the right parotid parotid gland extending inferiorly along the rightward/anterior aspect of the mandible and into the base of the neck. Superimposed asymmetric enlargement of the right parotid gland, masseter, sternocleidomastoid muscle, platysma, and medial/lateral pterygoid muscles, presumably indicating associated proctitis/myositis. Overall, these findings are presumably infectious in etiology. However, continued close interval follow-up is recommended to document resolution and exclude a more sinister process such as malignancy. 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 Again, this should be reassessed on follow-up imaging to document resolution. Superimposed deep cervical lymphadenopathy is likely reactive. TECHNICAL DOCUMENTATION: Quality ID # [id number]: Final reports with documentation of one or more dose reduction techniques (e.g., Automated exposure control, adjustment of the mA and/or kV according to patient size, use of iterative reconstruction technique) copyright 2011 [employer]- All Rights Reserved Status: Image reviewed by me Assessment & Plan - Diagnosis (1) Cellulitis and abscess of face Is this a current diagnosis for this admission?: Yes Plan: On appropriate antibiotics. Would continue this at least 48 hours before re- evaluation. (2) Leukocytosis Qualifiers: Leukocytosis type: unspecified Qualified Code(s): D72.829 - Elevated white blood cell count, unspecified Is this a current diagnosis for this admission?: Yes Plan: Most likely due to acute infection. (3) Parotitis, acute Is this a current diagnosis for this admission?: Yes Plan: Unclear if there may be a parotid stone, although no obvious on CT. Although I doubt this is a malignant process, I will be happy to arrange for repeat CT scan in a few weeks to assure resolution of the process. Consider ENT consult if no improvement in a few days. - Plan Summary Plan Summary: Thank you for this consultation. I will continue to follow her with you.
[2019-12-27] MEDS ORDERED: KETOROLAC TROMETHAMINE INJ/PF 30 MG/1 ML SDV IV PRN (08:48)
--- NOTE | 2019-12-27 08:51 | EKG REPORT ---
SEVERITY:- BORDERLINE ECG - SINUS TACHYCARDIA PROBABLE LEFT ATRIAL ABNORMALITY BORDERLINE LEFT AXIS DEVIATION : Confirmed by: Sergo Joy MD 27-Dec-2019 08:50:34
[2019-12-27] MEDS: DOCUSATE SODIUM 100 MG CAPSULE PO SCH ×2 (09:44→17:34)
[2019-12-27] MEDS: LINEZOLID 600 MG/300 ML RTUPB IV SCH ×2 (09:45→22:11)
[2019-12-27] MEDS ORDERED: DOCUSATE SODIUM 100 MG/10 ML UDC PO SCH (10:00)
--- NOTE | 2019-12-27 12:19 | PDOC PROGRESS REPORT ---
Subjective Progress Note for:: 12/27/19 Subjective:: Patient states that she has taken MMR vaccine in the past. This is her first experience with parotitis. Occurred very acutely. She states the pain is tolerable that is mostly just tender. Denies any difficulty breathing or swallowing. Reason For Visit: ACUTE RIGHT PAROTITIS,RIGHT FACIAL CELLULITIS, Physical Exam Vital Signs: Temp Pulse Resp BP Pulse Ox 98.6 F 103 H 17 147/85 H 95 12/27/19 08:04 12/27/19 08:04 12/27/19 08:04 12/27/19 08:04 12/27/19 08:04 Intake & Output 12/26/19 12/27/19 12/28/19 06:59 06:59 06:59 Intake Total 400 1820 Balance 400 1820 Weight 85.7 kg General appearance: PRESENT: no acute distress, cooperative Mouth exam: PRESENT: other - Not able to open her mouth widely enough to get a thorough evaluation of her oral cavity. ABSENT: neck supple Throat exam: PRESENT: post pharyngeal erythema Neck exam: PRESENT: other - Significant swelling with erythema noted over her right parotid gland and golfing most of her right jaw and submandibular region towards midline.. ABSENT: JVD, tracheal deviation Respiratory exam: PRESENT: clear to auscultation gege, symmetrical, unlabored. ABSENT: stridor, tachypnea, wheezes Cardiovascular exam: PRESENT: +S1, +S2, tachycardia. ABSENT: irregular rhythm GI/Abdominal exam: PRESENT: soft. ABSENT: rebound, rigid, tenderness Neurological exam: PRESENT: alert, awake, oriented to person, oriented to place, oriented to time Psychiatric exam: ABSENT: agitated, anxious Results Laboratory Results: 12/27/19 05:09 12/27/19 05:09 12/26/19 12/26/19 12/26/19 18:11 18:11 18:11 WBC 22.7 H RBC 4.58 Hgb 13.5 Hct 39.1 MCV 85 MCH 29.5 MCHC 34.6 RDW 13.5 Plt Count 333 Seg Neutrophils % Not Reportable VBG pH VBG pCO2 VBG HCO3 VBG Base Excess Sodium 133.6 L Potassium 4.4 Chloride 96 L Carbon Dioxide 26 Anion Gap 12 BUN 12 Creatinine 0.83 Est GFR ( Amer) > 60 Glucose 131 H Lactic Acid 0.9 Calcium 9.3 Magnesium Total Bilirubin 1.2 AST 30 Alkaline Phosphatase 159 H Total Protein 7.2 Albumin 3.8 TSH Free T4 12/26/19 12/26/19 12/26/19 18:11 19:51 21:15 WBC RBC Hgb Hct MCV MCH MCHC RDW Plt Count Seg Neutrophils % VBG pH 7.44 H VBG pCO2 40.5 VBG HCO3 27.0 VBG Base Excess 2.7 Sodium Potassium Chloride Carbon Dioxide Anion Gap BUN Creatinine Est GFR ( Amer) Glucose Lactic Acid 0.7 Calcium Magnesium Total Bilirubin AST Alkaline Phosphatase Total Protein Albumin TSH 5.54 H Free T4 1.09 12/27/19 12/27/19 12/27/19 01:15 05:09 05:09 WBC 21.3 H RBC 4.28 Hgb 12.8 Hct 36.4 MCV 85 MCH 29.8 MCHC 35.0 RDW 13.4 Plt Count 290 Seg Neutrophils % VBG pH VBG pCO2 VBG HCO3 VBG Base Excess Sodium 137.3 Potassium 4.2 Chloride 103 Carbon Dioxide 26 Anion Gap 8 BUN 9 Creatinine 0.74 Est GFR ( Amer) > 60 Glucose 141 H Lactic Acid 1.1 Calcium 8.8 Magnesium 2.3 Total Bilirubin AST Alkaline Phosphatase Total Protein Albumin TSH Free T4 Impressions: Chest CT 12/26/19 18:16 IMPRESSION: Contrast enhanced CT chest: No acute abnormality within the chest. Contrast enhanced CT neck: Inflammatory stranding located about the rightward aspect of the face, particularly involving the soft tissues just lateral and anterior to the right parotid parotid gland extending inferiorly along the rightward/anterior aspect of the mandible and into the base of the neck. Superimposed asymmetric enlargement of the right parotid gland, masseter, sternocleidomastoid muscle, platysma, and medial/lateral pterygoid muscles, presumably indicating associated proctitis/myositis. Overall, these findings are presumably infectious in etiology. However, continued close interval follow-up is recommended to document resolution and exclude a more sinister process such as malignancy. 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 Again, this should be reassessed on follow-up imaging to document resolution. Superimposed deep cervical lymphadenopathy is likely reactive. TECHNICAL DOCUMENTATION: Quality ID # [id number]: Final reports with documentation of one or more dose reduction techniques (e.g., Automated exposure control, adjustment of the mA and/or kV according to patient size, use of iterative reconstruction technique) copyright 2010 [employer]- All Rights Reserved Soft Tissue Neck CT 12/26/19 18:16 IMPRESSION: Contrast enhanced CT chest: No acute abnormality within the chest. Contrast enhanced CT neck: Inflammatory stranding located about the rightward aspect of the face, particularly involving the soft tissues just lateral and anterior to the right parotid parotid gland extending inferiorly along the rightward/anterior aspect of the mandible and into the base of the neck. Superimposed asymmetric enlargement of the right parotid gland, masseter, sternocleidomastoid muscle, platysma, and medial/lateral pterygoid muscles, presumably indicating associated proctitis/myositis. Overall, these findings are presumably infectious in etiology. However, continued close interval follow-up is recommended to document resolution and exclude a more sinister process such as malignancy. 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 Again, this should be reassessed on follow-up imaging to document resolution. Superimposed deep cervical lymphadenopathy is likely reactive. TECHNICAL DOCUMENTATION: Quality ID # [id number]: Final reports with documentation of one or more dose reduction techniques (e.g., Automated exposure control, adjustment of the mA and/or kV according to patient size, use of iterative reconstruction technique) copyright 2010 [employer]- All Rights Reserved Assessment and Plan - Diagnosis (1) Parotitis, acute Is this a current diagnosis for this admission?: Yes Plan: Has severe acute parotitis likely suppurative which is quite large in circumference. Etiology is likely bacterial or viral. Doubt neoplastic process. However no evidence of airway compromise currently on assessment. CT shows significant inflammation involving right forearm vomiting inferiorly and anteriorly along the mandible or the base of the neck as well as infiltrative phlegmon density. We will continue treatment with IV linezolid and meropenem. IV fluid hydration. Pain control with Toradol. Notable leukocytosis and tachycardia which we will monitor with morning labs. Tylenol for fevers. Does not appear septic however. If no improvement in the next 48 hours, will consult ENT to see surgical procedure is warranted. Oral hygiene (2) Obesity Qualifiers: Obesity type: unspecified obesity type Obesity classification: adult class 1 (BMI 30 - 34.9) Serious obesity comorbidity presence: without serious comorbidity Body mass index: BMI 31.0-31.9 Qualified Code(s): E66.9 - Obesity, unspecified; Z68.31 - Body mass index (BMI) 31.0-31.9, adult Is this a current diagnosis for this admission?: Yes - Time Time Spent with patient: 15-24 minutes Anticipated Discharge Disposition: Home, Self Care Anticipated Discharge Timeframe: within 48 hours
[2019-12-28] MEDS: DEXTROSE 5%-LACTATED RINGERS 1,000 ML IV PRN (02:46)
[2019-12-28] MEDS: MEROPENEM 1 GM in NORMAL SALINE 50 ML IV SCH ×3 (05:31→21:49)
[2019-12-28] MEDS: HEPARIN SOD (PORCINE) 5,000 UNIT/ML 1 ML VIAL SUBCUT SCH ×3 (05:31→21:49)
[2019-12-28 06:44] LABS: HEMATOCRIT 36.6 % (36.0-47.0); HEMOGLOBIN 12.4 g/dL (12.0-15.5); MEAN CORPUSCULAR HEMOGLOBIN 29.4 pg (27.0-33.4); MEAN CORPUSCULAR HGB CONC 33.9 g/dL (32.0-36.0); MEAN CORPUSCULAR VOLUME 87 fl (80-97); PLATELET COUNT 315 10^3/uL (150-450); RED BLOOD COUNT 4.22 10^6/uL (3.72-5.28); RED CELL DISTRIBUTION WIDTH 13.1 % (11.5-14.0); WHITE BLOOD COUNT 17.4 10^3/uL (4.0-10.5)
[2019-12-28 07:18] LABS: MUMPS IGG AB >300.0 AU/mL (Immune >10)
--- NOTE | 2019-12-28 08:47 | PDOC PROGRESS REPORT ---
Subjective Progress Note for:: 12/28/19 Subjective:: Patient states that she sees no difference from yesterday. No better, no worse. However, she appears to be able to turn her head a bit better and open her mouth a bit wider today. She is sitting up eating her breakfast on the side of the bed. ROS: She denies any dysphagia or dyspnea. Reason For Visit: ACUTE RIGHT PAROTITIS,RIGHT FACIAL CELLULITIS, Physical Exam Vital Signs: Temp Pulse Resp BP Pulse Ox 98.0 F 92 18 137/80 H 96 12/28/19 08:18 12/28/19 07:00 12/27/19 23:57 12/27/19 23:57 12/27/19 23:57 Intake & Output 12/27/19 12/28/19 12/29/19 06:59 06:59 06:59 Intake Total 400 4310 Balance 400 4310 Weight 85.7 kg 88.7 kg General appearance: PRESENT: no acute distress, well-developed, well-nourished Eye exam: PRESENT: EOMI Mouth exam: PRESENT: moist Throat exam: PRESENT: other - Unable to examine due to decreased ROM jaw. Neck exam: PRESENT: other - No significant difference from yesterday. Erythema and edema R>L. I cannot palpate any lymph nodes. Respiratory exam: PRESENT: unlabored Extremities exam: ABSENT: pedal edema Neurological exam: PRESENT: alert, awake, oriented to person, oriented to place, oriented to time, oriented to situation Psychiatric exam: PRESENT: appropriate affect Skin exam: PRESENT: normal color Results Laboratory Results: 12/28/19 06:06 12/27/19 05:09 12/28/19 06:06 WBC 17.4 H RBC 4.22 Hgb 12.4 Hct 36.6 MCV 87 MCH 29.4 MCHC 33.9 RDW 13.1 Plt Count 315 Impressions: Chest CT 12/26/19 18:16 IMPRESSION: Contrast enhanced CT chest: No acute abnormality within the chest. Contrast enhanced CT neck: Inflammatory stranding located about the rightward aspect of the face, particularly involving the soft tissues just lateral and anterior to the right parotid parotid gland extending inferiorly along the rightward/anterior aspect of the mandible and into the base of the neck. Superimposed asymmetric enlargement of the right parotid gland, masseter, sternocleidomastoid muscle, platysma, and medial/lateral pterygoid muscles, presumably indicating associated proctitis/myositis. Overall, these findings are presumably infectious in etiology. However, continued close interval follow-up is recommended to document resolution and exclude a more sinister process such as malignancy. 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 Again, this should be reassessed on follow-up imaging to document resolution. Superimposed deep cervical lymphadenopathy is likely reactive. TECHNICAL DOCUMENTATION: Quality ID # [id number]: Final reports with documentation of one or more dose reduction techniques (e.g., Automated exposure control, adjustment of the mA and/or kV according to patient size, use of iterative reconstruction technique) copyright 2011 [employer]- All Rights Reserved Soft Tissue Neck CT 12/26/19 18:16 IMPRESSION: Contrast enhanced CT chest: No acute abnormality within the chest. Contrast enhanced CT neck: Inflammatory stranding located about the rightward aspect of the face, particularly involving the soft tissues just lateral and anterior to the right parotid parotid gland extending inferiorly along the rightward/anterior aspect of the mandible and into the base of the neck. Superimposed asymmetric enlargement of the right parotid gland, masseter, sternocleidomastoid muscle, platysma, and medial/lateral pterygoid muscles, presumably indicating associated proctitis/myositis. Overall, these findings are presumably infectious in etiology. However, continued close interval follow-up is recommended to document resolution and exclude a more sinister process such as malignancy. 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 Again, this should be reassessed on follow-up imaging to document resolution. Superimposed deep cervical lymphadenopathy is likely reactive. TECHNICAL DOCUMENTATION: Quality ID # [id number]: Final reports with documentation of one or more dose reduction techniques (e.g., Automated exposure control, adjustment of the mA and/or kV according to patient size, use of iterative reconstruction technique) copyright 2011 [employer]- All Rights Reserved Assessment & Plan - Diagnosis (1) Cellulitis and abscess of face Is this a current diagnosis for this admission?: Yes Plan: Agree that this is most likely bacterial or viral in nature. Mumps Ab is pending. She continues ABX. (2) Leukocytosis Qualifiers: Leukocytosis type: unspecified Qualified Code(s): D72.829 - Elevated white blood cell count, unspecified Is this a current diagnosis for this admission?: Yes Plan: This again points to an infectious cause, as a malignancy would be less likely to cause an elevated WBC count. (3) Parotitis, acute Is this a current diagnosis for this admission?: Yes Plan: I will be happy to continue to follow and will be available if needed. Plan to see her about 2-4 weeks after discharge to offer repeat CT scan and assure resolution. - Time Time Spent with patient: 15-24 minutes
[2019-12-28] MEDS: DOCUSATE SODIUM 100 MG CAPSULE PO SCH ×2 (09:58→18:09)
[2019-12-28] MEDS: LINEZOLID 600 MG/300 ML RTUPB IV SCH (10:02)
[2019-12-28] MEDS: FAMOTIDINE INJ/PF 20 MG/2 ML SDV IV SCH ×2 (10:04→21:49)
--- NOTE | 2019-12-28 14:14 | PDOC PROGRESS REPORT ---
Subjective Progress Note for:: 12/28/19 Subjective:: Patient was quite concerned about the swelling in her jawline and neck today wound with some reassurances. Otherwise she continues to have only mild to moderate pain in the area. She has no trouble breathing and no difficulty with swallowing. Reason For Visit: ACUTE RIGHT PAROTITIS,RIGHT FACIAL CELLULITIS, Physical Exam Vital Signs: Temp Pulse Resp BP Pulse Ox 97.9 F 91 18 145/80 H 99 12/28/19 08:36 12/28/19 08:36 12/28/19 08:36 12/28/19 08:36 12/28/19 08:36 Intake & Output 12/27/19 12/28/19 12/29/19 06:59 06:59 06:59 Intake Total 400 4310 300 Balance 400 4310 300 Weight 85.7 kg 88.7 kg General appearance: PRESENT: no acute distress, cooperative Neck exam: PRESENT: other - Significant swelling of her right chain unremarkable extending to the base of the neck with erythema and mild tenderness Respiratory exam: PRESENT: symmetrical, unlabored. ABSENT: stridor, tachypnea, wheezes Cardiovascular exam: PRESENT: +S1, +S2. ABSENT: tachycardia Musculoskeletal exam: PRESENT: ambulatory Neurological exam: PRESENT: alert, awake Results Laboratory Results: 12/28/19 06:06 12/27/19 05:09 12/28/19 06:06 WBC 17.4 H RBC 4.22 Hgb 12.4 Hct 36.6 MCV 87 MCH 29.4 MCHC 33.9 RDW 13.1 Plt Count 315 Impressions: Chest CT 12/26/19 18:16 IMPRESSION: Contrast enhanced CT chest: No acute abnormality within the chest. Contrast enhanced CT neck: Inflammatory stranding located about the rightward aspect of the face, particularly involving the soft tissues just lateral and anterior to the right parotid parotid gland extending inferiorly along the rightward/anterior aspect of the mandible and into the base of the neck. Superimposed asymmetric enlargement of the right parotid gland, masseter, sternocleidomastoid muscle, platysma, and medial/lateral pterygoid muscles, presumably indicating associated proctitis/myositis. Overall, these findings are presumably infectious in etiology. However, continued close interval follow-up is recommended to document resolution and exclude a more sinister process such as malignancy. 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 Again, this should be reassessed on follow-up imaging to document resolution. Superimposed deep cervical lymphadenopathy is likely reactive. TECHNICAL DOCUMENTATION: Quality ID # [id number]: Final reports with documentation of one or more dose reduction techniques (e.g., Automated exposure control, adjustment of the mA and/or kV according to patient size, use of iterative reconstruction technique) copyright 2010 [employer]- All Rights Reserved Soft Tissue Neck CT 12/26/19 18:16 IMPRESSION: Contrast enhanced CT chest: No acute abnormality within the chest. Contrast enhanced CT neck: Inflammatory stranding located about the rightward aspect of the face, particularly involving the soft tissues just lateral and anterior to the right parotid parotid gland extending inferiorly along the rightward/anterior aspect of the mandible and into the base of the neck. Superimposed asymmetric enlargement of the right parotid gland, masseter, sternocleidomastoid muscle, platysma, and medial/lateral pterygoid muscles, presumably indicating associated proctitis/myositis. Overall, these findings are presumably infectious in etiology. However, continued close interval follow-up is recommended to document resolution and exclude a more sinister process such as malignancy. 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 Again, this should be reassessed on follow-up imaging to document resolution. Superimposed deep cervical lymphadenopathy is likely reactive. TECHNICAL DOCUMENTATION: Quality ID # [id number]: Final reports with documentation of one or more dose reduction techniques (e.g., Automated exposure control, adjustment of the mA and/or kV according to patient size, use of iterative reconstruction technique) copyright 2010 [employer]- All Rights Reserved Assessment and Plan - Diagnosis (1) Parotitis, acute Is this a current diagnosis for this admission?: Yes Plan: Has severe acute parotitis likely suppurative which is quite large in circumference. Etiology is likely bacterial or viral. Doubt neoplastic process. However no evidence of airway compromise currently on assessment. CT shows significant inflammation involving right forearm vomiting inferiorly and anteriorly along the mandible or the base of the neck as well as infiltrative phlegmon density. Vancomycin and meropenem. Encourage p.o. hydration. Oral hygiene. Pain control with Toradol. Leukocytosis is improving. Last noted fever was yesterday afternoon. Consult placed to Dr. Arreola today. Will start on some dexamethasone for the swelling. (2) Obesity Qualifiers: Obesity type: unspecified obesity type Obesity classification: adult class 1 (BMI 30 - 34.9) Serious obesity comorbidity presence: without serious comorbidity Body mass index: BMI 31.0-31.9 Qualified Code(s): E66.9 - Obesity, unspecified; Z68.31 - Body mass index (BMI) 31.0-31.9, adult Is this a current diagnosis for this admission?: Yes - Time Time Spent with patient: Less than 15 minutes Anticipated Discharge Disposition: Home, Self Care Anticipated Discharge Timeframe: within 48 hours
[2019-12-28] MEDS ORDERED: VANCOMYCIN HCL INJ 1000 MG VIAL IV SCH (14:15)
[2019-12-28] MEDS: DEXAMETHASONE SOD PHOS INJ 10 MG/1 ML VIAL IV SCH ×2 (15:03→20:33)
[2019-12-28] MEDS: VANCOMYCIN HCL 1,000 MG in DEXTROSE 5%-WATER 250 ML IV SCH (18:07)
[2019-12-29] MEDS: DEXAMETHASONE SOD PHOS INJ 10 MG/1 ML VIAL IV SCH (03:38)
[2019-12-29] MEDS: VANCOMYCIN HCL 1,000 MG in DEXTROSE 5%-WATER 250 ML IV SCH ×2 (03:39→15:57)
[2019-12-29] MEDS: MEROPENEM 1 GM in NORMAL SALINE 50 ML IV SCH ×3 (05:58→21:54)
[2019-12-29] MEDS: HEPARIN SOD (PORCINE) 5,000 UNIT/ML 1 ML VIAL SUBCUT SCH ×3 (05:59→21:53)
[2019-12-29 06:42] LABS: HEMATOCRIT 36.5 % (36.0-47.0); HEMOGLOBIN 12.5 g/dL (12.0-15.5); MEAN CORPUSCULAR HEMOGLOBIN 29.6 pg (27.0-33.4); MEAN CORPUSCULAR HGB CONC 34.2 g/dL (32.0-36.0); MEAN CORPUSCULAR VOLUME 87 fl (80-97); PLATELET COUNT 327 10^3/uL (150-450); RED BLOOD COUNT 4.21 10^6/uL (3.72-5.28); RED CELL DISTRIBUTION WIDTH 13.6 % (11.5-14.0); WHITE BLOOD COUNT 16.1 10^3/uL (4.0-10.5)
[2019-12-29 07:01] LABS: MUMPS IGM AB <0.80 AU (0.00-0.79)
[2019-12-29] MEDS: DOCUSATE SODIUM 100 MG CAPSULE PO SCH ×2 (10:26→17:00)
[2019-12-29] MEDS: FAMOTIDINE INJ/PF 20 MG/2 ML SDV IV SCH ×2 (10:36→21:53)
--- NOTE | 2019-12-29 17:16 | PDOC PROGRESS REPORT ---
Subjective Progress Note for:: 12/29/19 Subjective:: Patient still having swelling there but not having any pain. Denies fever or chills but did have a notable fever yesterday. Reason For Visit: ACUTE RIGHT PAROTITIS,RIGHT FACIAL CELLULITIS, Physical Exam Vital Signs: Temp Pulse Resp BP Pulse Ox 97.7 F 86 18 137/79 H 94 12/29/19 08:30 12/29/19 14:00 12/28/19 23:53 12/28/19 23:53 12/28/19 23:53 Intake & Output 12/28/19 12/29/19 12/30/19 06:59 06:59 06:59 Intake Total 4310 3371 400 Balance 4310 3371 400 Weight 88.7 kg 85.4 kg General appearance: PRESENT: no acute distress, cooperative Neck exam: PRESENT: other - Significant swelling of her right chain unremarkable extending to the base of the neck with erythema and mild tenderness Respiratory exam: PRESENT: symmetrical, unlabored. ABSENT: stridor, tachypnea, wheezes Musculoskeletal exam: PRESENT: ambulatory Neurological exam: PRESENT: alert, awake, oriented to person, oriented to place, oriented to time Psychiatric exam: ABSENT: agitated, anxious Results Laboratory Results: 12/29/19 06:15 12/27/19 05:09 12/29/19 06:15 WBC 16.1 H RBC 4.21 Hgb 12.5 Hct 36.5 MCV 87 MCH 29.6 MCHC 34.2 RDW 13.6 Plt Count 327 Impressions: Chest CT 12/26/19 18:16 IMPRESSION: Contrast enhanced CT chest: No acute abnormality within the chest. Contrast enhanced CT neck: Inflammatory stranding located about the rightward aspect of the face, particularly involving the soft tissues just lateral and anterior to the right parotid parotid gland extending inferiorly along the rightward/anterior aspect of the mandible and into the base of the neck. Superimposed asymmetric enlargement of the right parotid gland, masseter, sternocleidomastoid muscle, platysma, and medial/lateral pterygoid muscles, presumably indicating associated proctitis/myositis. Overall, these findings are presumably infectious in etiology. However, continued close interval follow-up is recommended to document resolution and exclude a more sinister process such as malignancy. 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 Again, this should be reassessed on follow-up imaging to document resolution. Superimposed deep cervical lymphadenopathy is likely reactive. TECHNICAL DOCUMENTATION: Quality ID # [id number]: Final reports with documentation of one or more dose reduction techniques (e.g., Automated exposure control, adjustment of the mA and/or kV according to patient size, use of iterative reconstruction technique) copyright 2010 [employer]- All Rights Reserved Soft Tissue Neck CT 12/26/19 18:16 IMPRESSION: Contrast enhanced CT chest: No acute abnormality within the chest. Contrast enhanced CT neck: Inflammatory stranding located about the rightward aspect of the face, particularly involving the soft tissues just lateral and anterior to the right parotid parotid gland extending inferiorly along the rightward/anterior aspect of the mandible and into the base of the neck. Superimposed asymmetric enlargement of the right parotid gland, masseter, sternocleidomastoid muscle, platysma, and medial/lateral pterygoid muscles, presumably indicating associated proctitis/myositis. Overall, these findings are presumably infectious in etiology. However, continued close interval follow-up is recommended to document resolution and exclude a more sinister process such as malignancy. 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 Again, this should be reassessed on follow-up imaging to document resolution. Superimposed deep cervical lymphadenopathy is likely reactive. TECHNICAL DOCUMENTATION: Quality ID # [id number]: Final reports with documentation of one or more dose reduction techniques (e.g., Automated exposure control, adjustment of the mA and/or kV according to patient size, use of iterative reconstruction technique) copyright 2010 [employer]- All Rights Reserved Assessment and Plan - Diagnosis (1) Parotitis, acute Is this a current diagnosis for this admission?: Yes Plan: Has severe acute parotitis likely suppurative which is quite large in circumference. Etiology is likely bacterial or viral. Doubt neoplastic process. However no evidence of airway compromise currently on assessment. CT shows significant inflammation involving right forearm vomiting inferiorly and anteriorly along the mandible or the base of the neck as well as infiltrative phlegmon density. Vancomycin and meropenem. Encourage p.o. hydration. Oral hygiene. Pain control with Toradol. Leukocytosis is improving modestly. Had another fever yesterday afternoon. Discussed with Dr. Arreola today who has evaluated patient and recommend repeat CT of the neck to see if there is any drainable abscess that has formed at this point. Continue dexamethasone IV. We will switch dose to 4 mg. (2) Obesity Qualifiers: Obesity type: unspecified obesity type Obesity classification: adult class 1 (BMI 30 - 34.9) Serious obesity comorbidity presence: without serious comorbidity Body mass index: BMI 31.0-31.9 Qualified Code(s): E66.9 - O besity, unspecified; Z68.31 - Body mass index (BMI) 31.0-31.9, adult Is this a current diagnosis for this admission?: Yes - Time Time Spent with patient: Less than 15 minutes Anticipated Discharge Disposition: Home, Self Care Anticipated Discharge Timeframe: within 48 hours
[2019-12-29] MEDS: METOPROLOL TARTRATE PF/INJ 5 MG/5 ML SDV IV PRN (20:21)
[2019-12-29 21:53] LABS: C DIFFICILE GDH NEGATIVE (NEGATIVE)
[2019-12-29] MEDS: DEXAMETHASONE SOD PHOSPHATE INJ 4 MG/1 ML VIAL IV SCH (21:53)
--- NOTE | 2019-12-29 22:33 | RADIOLOGY REPORT (SQ) ---
EXAM DESCRIPTION: CT neck with IV contrast CLINICAL HISTORY: Reassess parotid inflammation. Clinician requests assessment for drainable abscess. TECHNIQUE: Multiple-row detector helical CT examination of the neck with IV contrast. 100 mL Isovue 350 IV. Nonionic intravenous contrast material was administered per standard departmental protocol. This exam was performed according to our departmental dose optimization program, and includes the following measures where applicable: automated exposure control, adjustment of the mAs and/or kVp according to patient size and/or exam, and an iterative reconstruction algorithm. COMPARISON: CT neck December 26, 2019 Thyroid gland enhances symmetrically. Hypopharynx, oropharynx, and nasopharynx show no suspicious abnormality. Globes and orbits are normal in appearance. Limited assessment of the brain parenchyma appears within normal limits. Right parotid gland again appears asymmetrically enlarged compared to the contralateral side. In addition, there is persistent grossly similar appearing superimposed soft tissue swelling about the rightward aspect of the face. There is also persistent asymmetric enlargement of the right masseter muscle, right sternocleidomastoid muscle, and right medial/lateral pterygoid musculature as well as asymmetric thickening involving the right platysma muscle. Inflammatory stranding extends inferiorly into the base of the neck, in a pattern similar in extent when compared to prior study. There is redemonstration of several associated mildly enlarged right level IIa and Ib lymph nodes, the largest of which is located about the right level IIa region were to slightly decreased in size when compared with prior exam currently measuring 1.4 x 0.9 cm, previously 1.7 x 1.1 cm in size (sequence 3 image 40). 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 Vascular structures opacify with contrast normally. There are no circumscribed rim-enhancing collections to indicate drainable fluid. No suspicious lytic or blastic osseous lesions. IMPRESSION: Study is compared with January 08, 2020 and demonstrates grossly similar to minimally improved findings when compared with prior exam. There is redemonstration of inflammatory changes in the right facial soft tissues, particularly involving the soft tissues just lateral and anterior to the right parotid parotid gland extending inferiorly along the rightward/anterior aspect of the mandible and into the base of the neck. Superimposed asymmetric enlargement of the right parotid gland, masseter, sternocleidomastoid muscle, platysma, and medial/lateral pterygoid muscles similar in extent to prior study. Superimposed deep cervical lymphadenopathy is nonspecific and may be reactive in nature. As before, these findings are favored to be infectious in etiology. However, continued close attention on follow-up is recommended as the possibility of neoplasm is not excluded.
[2019-12-30] MEDS: VANCOMYCIN HCL 1,000 MG in DEXTROSE 5%-WATER 250 ML IV SCH (04:40)
[2019-12-30] MEDS: HEPARIN SOD (PORCINE) 5,000 UNIT/ML 1 ML VIAL SUBCUT SCH (06:06)
[2019-12-30] MEDS: MEROPENEM 1 GM in NORMAL SALINE 50 ML IV SCH (06:06)
[2019-12-30] MEDS: DEXAMETHASONE SOD PHOSPHATE INJ 4 MG/1 ML VIAL IV SCH (06:06)
--- NOTE | 2019-12-30 08:21 | PDOC PROGRESS REPORT ---
Subjective Progress Note for:: 12/30/19 Subjective:: Patient states that the pain and swelling have almost completely resolved. Repeat CT was performed yesterday. She is hopeful she will be able to go home later today. No new complaints. Reason For Visit: ACUTE RIGHT PAROTITIS,RIGHT FACIAL CELLULITIS, Physical Exam Vital Signs: Temp Pulse Resp BP Pulse Ox 97.5 F 63 17 170/92 H 98 12/30/19 07:22 12/30/19 07:22 12/30/19 07:22 12/30/19 07:22 12/30/19 07:22 Intake & Output 12/29/19 12/30/19 12/31/19 06:59 06:59 06:59 Intake Total 3371 2370 Output Total 2200 Balance 3371 170 Weight 85.4 kg 85.2 kg General appearance: PRESENT: no acute distress Head exam: PRESENT: normocephalic Neck exam: PRESENT: other - Improved. erythema continues, but edema much less. Respiratory exam: PRESENT: unlabored Extremities exam: ABSENT: pedal edema Musculoskeletal exam: PRESENT: normal inspection Neurological exam: PRESENT: alert, awake, other - Patient sitting up eating breakfast on side of bed. Skin exam: PRESENT: normal color Results Laboratory Results: 12/29/19 06:15 12/27/19 05:09 Impressions: Chest CT 12/26/19 18:16 IMPRESSION: Contrast enhanced CT chest: No acute abnormality within the chest. Contrast enhanced CT neck: Inflammatory stranding located about the rightward aspect of the face, particularly involving the soft tissues just lateral and anterior to the right parotid parotid gland extending inferiorly along the rightward/anterior aspect of the mandible and into the base of the neck. Superimposed asymmetric enlargement of the right parotid gland, masseter, sternocleidomastoid muscle, platysma, and medial/lateral pterygoid muscles, presumably indicating associated proctitis/myositis. Overall, these findings are presumably infectious in etiology. However, continued close interval follow-up is recommended to document resolution and exclude a more sinister process such as malignancy. 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 Again, this should be reassessed on follow-up imaging to document resolution. Superimposed deep cervical lymphadenopathy is likely reactive. TECHNICAL DOCUMENTATION: Quality ID # [id number]: Final reports with documentation of one or more dose reduction techniques (e.g., Automated exposure control, adjustment of the mA and/or kV according to patient size, use of iterative reconstruction technique) copyright 2011 [employer]- All Rights Reserved Soft Tissue Neck CT 12/29/19 00:00 IMPRESSION: Study is compared with January 08, 2020 and demonstrates grossly similar to minimally improved findings when compared with prior exam. There is redemonstration of inflammatory changes in the right facial soft tissues, particularly involving the soft tissues just lateral and anterior to the right parotid parotid gland extending inferiorly along the rightward/anterior aspect of the mandible and into the base of the neck. Superimposed asymmetric enlargement of the right parotid gland, masseter, sternocleidomastoid muscle, platysma, and medial/lateral pterygoid muscles similar in extent to prior study. Superimposed deep cervical lymphadenopathy is nonspecific and may be reactive in nature. As before, these findings are favored to be infectious in etiology. However, continued close attention on follow-up is recommended as the possibility of neoplasm is not excluded. Assessment & Plan - Diagnosis (1) Cellulitis and abscess of face Is this a current diagnosis for this admission?: Yes Plan: Resolving. LN and edema have improved per CT in only 2 days. However, repeat CT in about 6 weeks was still recommended to ensure resolution of process. (2) Leukocytosis Qualifiers: Leukocytosis type: unspecified Qualified Code(s): D72.829 - Elevated white blood cell count, unspecified Is this a current diagnosis for this admission?: Yes Plan: Most likely reactive due to infection. This has also improved. (3) Parotitis, acute Is this a current diagnosis for this admission?: Yes - Time Time Spent with patient: Less than 15 minutes - Plan Summary Plan Summary: I will be happy to follow as outpatient if no PCP or other physician to obtain the CT.
[2019-12-30] MEDS: METOPROLOL TARTRATE PF/INJ 5 MG/5 ML SDV IV PRN (08:26)
[2019-12-30] MEDS: DOCUSATE SODIUM 100 MG CAPSULE PO SCH (09:05)
[2019-12-30] MEDS: FAMOTIDINE INJ/PF 20 MG/2 ML SDV IV SCH (09:08)
[2019-12-30 12:13] VITALS: BP 142/80
--- NOTE | 2019-12-30 15:28 | PDOC DISCHARGE SUMMARY ---
Impression - Admit/DC Date/PCP Admission Date/Primary Care Provider: 12/26/19 22:29 Discharge Date: 12/30/19 - Discharge Diagnosis (1) Parotitis, acute Is this a current diagnosis for this admission?: Yes (2) Obesity Is this a current diagnosis for this admission?: Yes (3) Hypertension Is this a current diagnosis for this admission?: Yes - Additional Information Resuscitation Status: Full Code Discharge Diet: Regular Discharge Activity: Activity As Tolerated, Balance Activity w/Rest Referrals: ROXANA TRIPATHI MD [ACTIVE STAFF] - 01/27/20 10:15 am (FIRST VISIT IS $50.00 AT TIME OF SERVICE AND ANY OTHER APPT DEPENDS ON TIME SPENT WITH MD. IF APPT NEEDS TO BE CANCELLED FOR ANY REASON PLEASE CALL OFFICE. ) SHAHLA CROUCH DO [ASSOCIATE] - 01/10/20 10:00 am (PATIENT WILL HAVE TO PAY $100 UP FRONT FOR FIRST VISIT ANY OTHER APPT WILL BE $75. AND CHECK IN TIME IS 0930 IF APPT NEEDS TO BE CANCELLED FOR ANY REASON PLEASE CALL OFFICE. ) Prescriptions: Ciprofloxacin HCl [Cipro 500 mg Tablet] 500 mg PO BID 9 Days #18 tablet Clindamycin HCl [Cleocin 150 mg Capsule] 450 mg PO TID 9 Days Amlodipine Besylate [Norvasc 5 mg Tablet] 5 mg PO Q12 #60 tablet Home Medications: Amlodipine Besylate [Norvasc 5 mg Tablet] 5 mg PO Q12 #60 tablet 12/30/19 Ciprofloxacin HCl [Cipro 500 mg Tablet] 500 mg PO BID 9 Days #18 tablet 12/30/19 Clindamycin HCl [Cleocin 150 mg Capsule] 450 mg PO TID 9 Days 12/30/19 History of Present Illiness History of Present Illness: BERE MILLER is a 49 year old female Hospital Course Hospital Course: Patient presented with acute swelling of jaw and underneath her chin. On presentation, work-up revealed significant leukocytosis, fever and CT scan of soft tissue revealed significant inflammation involving right aspect of face particularly involving the soft tissues just lateral and anterior to the right parotid gland and extending inferiorly and anteriorly along the mandible or the base of the neck as well as infiltrative phlegmon density as well as lymphadenopathy. Testing for mumps serology was just consistent with previous mumps vaccination. It was thought that patient's presentation with an acute development of severe right jaw swelling which seem to have happened over the course of only a few days, along with her fever and leukocytosis of 22,700 with a more consistent with acute suppurative parotitis likely from bacteria/viral infection more so than a malignancy. Patient never had any airway compromise. Patient was seen by the oncologist who recommends treatment with antibiotics and follow-up CT in a few weeks to see if resolution before pursuing further testing for malignancy. Patient was treated with IV antibiotics initially with linezolid and meropenem then switched to vancomycin and meropenem. Her leukocytosis improved. The swelling in her jaw also improved but is still significant. She does notably have only mild to minimal tenderness. She was given some anti-inflammatories. She was also given 2 days of IV dexamethasone to help with the swelling. ENT evaluated patient yesterday and has raised concerns for malignancy. I discussed this with patient this morning and patient is adamant on leaving and going back home. She stated she will sign out AMA if she is not discharge. As such I will discharge patient with oral antibiotics ciprofloxacin and clindamycin according to guidelines to complete 13-day course of antibiotics. Patient has been set up for follow-up with Dr. Tripathi in the clinic who I have discussed with today and we will plan for repeat CT as outpatient in a few weeks before determining if to proceed with biopsy. Have also started patient on antihypertensive medication. Physical Exam Vital Signs: Temp Pulse Resp BP Pulse Ox 97.6 F 66 12 142/80 H 100 12/30/19 12:09 12/30/19 12:09 12/30/19 12:09 12/30/19 12:09 12/30/19 12:09 Intake & Output 12/29/19 12/30/19 12/31/19 06:59 06:59 06:59 Intake Total 3371 2370 660 Output Total 2200 Balance 3371 170 660 Weight 85.4 kg 85.2 kg General appearance: PRESENT: no acute distress, cooperative Neck exam: PRESENT: other - Significant swelling of her right chin extending to the base of the neck with erythema and minimal tenderness. ABSENT: carotid bruit Neurological exam: PRESENT: alert, awake, oriented to person, oriented to place, oriented to time Psychiatric exam: ABSENT: agitated, anxious Results Laboratory Results: WBC 16.1 10^3/uL (4.0-10.5) H 12/29/19 06:15 RBC 4.21 10^6/uL (3.72-5.28) 12/29/19 06:15 Hgb 12.5 g/dL (12.0-15.5) 12/29/19 06:15 Hct 36.5 % (36.0-47.0) 12/29/19 06:15 MCV 87 fl (80-97) 12/29/19 06:15 MCH 29.6 pg (27.0-33.4) 12/29/19 06:15 MCHC 34.2 g/dL (32.0-36.0) 12/29/19 06:15 RDW 13.6 % (11.5-14.0) 12/29/19 06:15 Plt Count 327 10^3/uL (150-450) 12/29/19 06:15 Lymph % (Auto) Not Reportable 12/26/19 18:11 Pitkin % (Auto) Not Reportable 12/26/19 18:11 Eos % (Auto) Not Reportable 12/26/19 18:11 Baso % (Auto) Not Reportable 12/26/19 18:11 Absolute Neuts (auto) Not Reportable 12/26/19 18:11 Absolute Lymphs (auto) Not Reportable 12/26/19 18:11 Absolute Monos (auto) Not Reportable 12/26/19 18:11 Absolute Eos (auto) Not Reportable 12/26/19 18:11 Absolute Basos (auto) Not Reportable 12/26/19 18:11 Total Counted 100 12/26/19 18:11 Seg Neutrophils % Not Reportable 12/26/19 18:11 Seg Neuts % (Manual) 82 % (42-78) H 12/26/19 18:11 Lymphocytes % (Manual) 4 % (13-45) L 12/26/19 18:11 Atypical Lymphs % 2 % (0) 12/26/19 18:11 Monocytes % (Manual) 12 % (3-13) 12/26/19 18:11 Eosinophils % (Manual) 0 % (0-6) 12/26/19 18:11 Basophils % (Manual) 0 % (0-2) 12/26/19 18:11 Abs Neuts (Manual) 18.6 10^3/uL (1.7-8.2) H 12/26/19 18:11 Abs Lymphs (Manual) 1.4 10^3/uL (0.5-4.7) 12/26/19 18:11 Abs Monocytes (Manual) 2.7 10^3/uL (0.1-1.4) H 12/26/19 18:11 Absolute Eos (Manual) 0.0 10^3/uL (0.0-0.6) 12/26/19 18:11 Abs Basophils (Manual) 0.0 10^3/uL (0.0-0.2) 12/26/19 18:11 Clumped Platelets PRESENT 12/26/19 18:11 Platelet Comment ADEQUATE 12/26/19 18:11 RBC Morph Comment NORMO-CYTIC/CHROMIC 12/26/19 18:11 PT 14.9 SEC (11.4-15.4) 12/26/19 18:11 INR 1.15 12/26/19 18:11 VBG pH 7.44 (7.30-7.42) H 12/26/19 19:51 VBG pCO2 40.5 mmHg (35-63) 12/26/19 19:51 VBG HCO3 27.0 mmol/L (20-32) 12/26/19 19:51 VBG Base Excess 2.7 mmol/L 12/26/19 19:51 Sodium 137.3 mmol/L (137-145) 12/27/19 05:09 Potassium 4.2 mmol/L (3.6-5.0) 12/27/19 05:09 Chloride 103 mmol/L (98-107) 12/27/19 05:09 Carbon Dioxide 26 mmol/L (22-30) 12/27/19 05:09 Anion Gap 8 (5-19) 12/27/19 05:09 BUN 9 mg/dL (7-20) 12/27/19 05:09 Creatinine 0.74 mg/dL (0.52-1.25) 12/27/19 05:09 Est GFR ( Amer) > 60 (>60) 12/27/19 05:09 Est GFR (MDRD) Non-Af > 60 (>60) 12/27/19 05:09 Glucose 141 mg/dL (75-110) H 12/27/19 05:09 Lactic Acid 1.1 mmol/L (0.7-2.1) 12/27/19 01:15 Calcium 8.8 mg/dL (8.4-10.2) 12/27/19 05:09 Magnesium 2.3 mg/dL (1.6-2.3) 12/27/19 05:09 Total Bilirubin 1.2 mg/dL (0.2-1.3) 12/26/19 18:11 Direct Bilirubin 0.5 mg/dL (0.0-0.4) H 12/26/19 18:11 Neonat Total Bilirubin Not Reportable 12/26/19 18:11 Neonat Direct Bilirubin Not Reportable 12/26/19 18:11 Neonat Indirect Bili Not Reportable 12/26/19 18:11 AST 30 U/L (14-36) 12/26/19 18:11 ALT 54 U/L (<35) H 12/26/19 18:11 Alkaline Phosphatase 159 U/L (38-126) H 12/26/19 18:11 Total Protein 7.2 g/dL (6.3-8.2) 12/26/19 18:11 Albumin 3.8 g/dL (3.5-5.0) 12/26/19 18:11 TSH 5.54 uIU/mL (0.47-4.68) H 12/26/19 18:11 Free T4 1.09 ng/dL (0.78-2.19) 12/26/19 18:11 Stl C. Difficile GDH Ag NEGATIVE (NEGATIVE) 12/29/19 14:44 Stl C.difficile Tox A&B NEGATIVE (NEGATIVE) 12/29/19 14:44 Mumps Virus IgG Ab >300.0 AU/mL (Immune >10) 12/27/19 05:09 Mumps Virus IgM Ab <0.80 AU (0.00-0.79) 12/27/19 05:09 Impressions: Chest CT 12/26/19 18:16 IMPRESSION: Contrast enhanced CT chest: No acute abnormality within the chest. Contrast enhanced CT neck: Inflammatory stranding located about the rightward aspect of the face, particularly involving the soft tissues just lateral and anterior to the right parotid parotid gland extending inferiorly along the rightward/anterior aspect of the mandible and into the base of the neck. Superimposed asymmetric enlargement of the right parotid gland, masseter, sternocleidomastoid muscle, platysma, and medial/lateral pterygoid muscles, presumably indicating associated proctitis/myositis. Overall, these findings are presumably infectious in etiology. However, continued close interval follow-up is recommended to document resolution and exclude a more sinister process such as malignancy. Superimposed infiltrative soft tissue density located about the soft tissues just anterior and medial to the right sternocleidomastoid muscle (within the wood fence erector space) presumably corresponds to phlegmon. Again, this should be reassessed on follow-up imaging to document resolution. Superimposed deep cervical lymphadenopathy is likely reactive. TECHNICAL DOCUMENTATION: Quality ID # [id number]: Final reports with documentation of one or more dose reduction techniques (e.g., Automated exposure control, adjustment of the mA and/or kV according to patient size, use of iterative reconstruction technique) copyright 2011 [employer]- All Rights Reserved Soft Tissue Neck CT 12/26/19 18:16 IMPRESSION: Contrast enhanced CT chest: No acute abnormality within the chest. Contrast enhanced CT neck: Inflammatory stranding located about the rightward aspect of the face, particularly involving the soft tissues just lateral and anterior to the right parotid parotid gland extending inferiorly along the rightward/anterior aspect of the mandible and into the base of the neck. Superimposed asymmetric enlargement of the right parotid gland, masseter, sternocleidomastoid muscle, platysma, and medial/lateral pterygoid muscles, presumably indicating associated proctitis/myositis. Overall, these findings are presumably infectious in etiology. However, continued close interval follow-up is recommended to document resolution and exclude a more sinister process such as malignancy. Superimposed infiltrative soft tissue density located about the soft tissues just anterior and medial to the right sternocleidomastoid muscle (within the wood fence erector space) presumably corresponds to phlegmon. Again, this should be reassessed on follow-up imaging to document resolution. Superimposed deep cervical lymphadenopathy is likely reactive. TECHNICAL DOCUMENTATION: Quality ID # [id number]: Final reports with documentation of one or more dose reduction techniques (e.g., Automated exposure control, adjustment of the mA and/or kV according to patient size, use of iterative reconstruction technique) copyright 2011 [employer]- All Rights Reserved Soft Tissue Neck CT 12/29/19 00:00 IMPRESSION: Study is compared with January 08, 2020 and demonstrates grossly similar to minimally improved findings when compared with prior exam. There is redemonstration of inflammatory changes in the right facial soft tissues, particularly involving the soft tissues just lateral and anterior to the right parotid parotid gland extending inferiorly along the rightward/anterior aspect of the mandible and into the base of the neck. Superimposed asymmetric enlargement of the right parotid gland, masseter, sternocleidomastoid muscle, platysma, and medial/lateral pterygoid muscles similar in extent to prior study. Superimposed deep cervical lymphadenopathy is nonspecific and may be reactive in nature. As before, these findings are favored to be infectious in etiology. However, continued close attention on follow-up is recommended as the possibility of neoplasm is not excluded. Plan Time Spent: Less than 30 Minutes Stroke Is this a Stroke Patient?: No Acute Heart Failure Is this a Heart Failure Patient?: No
== END 2019-12-30 12:50 | disposition home or self-care (01) | DRG 155 ==
LOC: ER 17:36 → EH 22:29 → 4S 12-27 00:15
PROVIDERS: ADMIT Emergency Medicine; ATTEND Internal Medicine
DX: K11.21 Acute sialoadenitis (principal); H05.019 Cellulitis of unspecified orbit; E66.9 Obesity, unspecified; I10 Essential (primary) hypertension; F17.200 Nicotine dependence, unspecified, uncomplicated; D72.829 Elevated white blood cell count, unspecified; R00.0 Tachycardia, unspecified; Z79.899 Other long term (current) drug therapy; Z68.31 Body mass index [BMI] 31.0-31.9, adult; Z82.49 Family history of ischemic heart disease and other diseases of the circulatory system
CPT/HCPCS: 36415; 70491; 71260; 80048; 80053; 82803; 83605; 83735; 84439; 84443; 85025; 85027; 85610; 86735; 87040; 87324; 87449; 93005; 93010; 96365; 96366; 96367; 96375; 99285; J0696; J1100; J1200; J1644; J1956; J2020; J2185; J3370; J3490; J7060; J7121; S0028